=== PATIENT | female | born 1935 | race Caucasian/White ===

== ENCOUNTER 2018-01-02 17:35 | Inpatient (IN) | payer OTHER, MEDICARE ==
[~2018-01-02] VITALS: Ht 152.4 cm; Wt 96.7 kg
[~2018-01-02 17:35] MED LIST: ALPRAZOLAM0.25 M1 PO; ASPIRIN EC81 M1 PO; CARDIZEM CD120 M2 PO; DILTIAZEM 24HR180 M1 PO; DOCUSATE SODIU100 M3 PO; ELIQUIS5 M1 PO; FUROSEMIDE40 M1 PO; LASIX40 M1 PO; LISINOPRIL10 M1 PO; METOPROLOL TART25 M1 PO; MONTELUKAST SOD10 M1 PO; NITROSTAT0.4 M1 SL; QUINAPRIL HCL10 M1 PO; SIMVASTATIN10 M1 PO; VITAMIN B-12250 MCG PO
--- NOTE | 2018-01-02 18:39 | ED DYSPNEA/ASTHMA COMPLAINT ---
History of Present Illness General Chief Complaint: Dyspnea (COPD, CHF, Other) Stated Complaint: BIBA SOB Source: patient, old records Exam Limitations: poor historian Vital Signs & Intake/Output Vital Signs & Intake/Output Vital Signs Date Time Temp Pulse Resp B/P B/P Pulse O2 O2 Flow FiO2 Mean Ox Delivery Rate 01/03 1154 98.6 100 24 140/60 98 Nasal 2.0L Cannula 01/03 0615 99.3 87 18 126/59 98 Room Air 01/02 2043 98.2 100 24 164/69 95 Nasal 2.0L Cannula 01/02 1805 Room Air 2.0L 01/02 1800 98.4 103 26 143/76 94 Room Air ED Intake and Output 01/03 0000 01/02 1200 Intake Total Output Total Balance Patient 200 lb Weight Weight Reported by Patient Measurement Method Allergies Coded Allergies: NO KNOWN ALLERGIES (03/18/16) Reconcile Medications Alprazolam 0.25 MG TABLET 1 TAB PO AT BEDTIME PRN SLEEP (Reported) Apixaban (Eliquis) 5 MG TABLET 1 TAB PO BID BLOOD THINNER (Reported) Aspirin (Ecotrin*) 81 MG TABLET.DR 1 TAB PO DAILY HEART (Reported) Diltiazem HCl (Diltiazem 24HR Cd) 180 MG CAP.ER.24H 1 CAP PO DAILY HEART ( Reported) Furosemide 40 MG TABLET 1.5 TAB PO DAILY CHF Lisinopril 10 MG TABLET 10 MG PO DAILY HEART HEALTH Metoprolol Tartrate 25 MG TABLET 25 MG PO BID HEART HEALTH Simvastatin (Simvastatin*) 10 MG TABLET 1 TAB PO QPM CHOLESTEROL (Reported) Triage Note: 82 Y/O FEMALE BIBA WITH COMPLAINTS OF SOB X 2 DAYS. DENIES COUGH, CP, N/V/D. Triage Nurses Notes Reviewed? yes HPI: Patient presents for evaluation of "can't breathe good" began subacutely yesterday. Patient is having some difficulty describing the issue. She denies wheezing fever or cold symptoms but states that she "always" has orthopnea and that she "never lies down". She is also complaining of chest heaviness constantly over the past 2 days. 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 see below for history Family History Hx Contributory? No (Ronn Elder DO) Review of Systems Review of Systems Constitutional: Denies: fever. EENTM: Reports: no symptoms. Respiratory: Reports: short of breath. Cardiovascular: Reports: see HPI. GI: Reports: no symptoms. Skin: Reports: no symptoms. Neurological/Psychological: Reports: no symptoms. (Ronn Elder DO) Physical Exam Physical Exam Respiratory: SEE BELOW Comments: Gen.: Well-nourished, well-developed, mild to moderate respiratory distress Head: Normocephalic, atraumatic. Eyes: Normal inspection bilaterally Ears: Normal inspection bilaterally Nose: Normal inspection Throat/mouth : Moist mucosa Neck: Supple, full range of motion, no goiter, no JVD Heart: IRRegular rate and rhythm, no murmurs rubs or gallops Lungs: Clear to auscultation bilaterally with normal air entry Chest: Nontender Back: Normal range of motion Abdomen: Soft, nontender, nondistended, normal bowel sounds Extremities: Normal range of motion grossly, equal radial pulses, no cyanosis, bilateral 2-3+ lower extremity pitting edema Neurologic: Cranial nerves grossly intact, speech is clear Skin: warm and dry Psychiatric: Calm, cooperative, no apparent delusions or hallucinations (Ronn Yen MD) Core Measures ACS in differential dx? Yes CVA/TIA Diagnosis No Sepsis Present: No Sepsis Focused Exam Completed? No (Ronn Elder DO) Progress Differential Diagnosis: AMI, bronchitis, CHF, COPD, pneumonia, unstable angina Plan of Care: Orders Procedure Date/time Status CHF Diet 01/03 B Active Vital Signs 01/03 849 Active Teach/Educate 02/21 0849 Active Pain Treatment and Response 01/03 0849 Active Nutritional Intake, Monitor 01/03 0849 Active Isolation 01/03 0849 Active Intake & Output 01/03 0849 Active Patient Care Conference 01/03 0849 Active Activity/Ambulation 01/03 0849 Active TROPONIN LEVEL 01/03 0730 Complete EKG 01/03 0730 Active Change service to 01/03 0727 Active Change service to 01/03 0634 Active CBC WITHOUT DIFFERENTIAL 01/03 0600 Complete BASIC ELECTROLYTES PLUS BUN&CR 01/03 0600 Complete EKG 01/03 0600 Active Change service to 01/03 0259 Active LACTIC ACID 01/03 0217 Complete Change service to 01/03 0209 Active TROPONIN LEVEL 01/03 0000 Complete EKG 01/03 0000 Active PHYSICIAN CONSULT 01/03 UNK Active ECHOCARDIOGRAM 01/03 UNK Active BLOOD CULTURE 01/02 2325 Active URINALYSIS 01/02 2325 Active Code Status 01/02 2310 Active Add-on Test (ER Only) 01/02 2302 Active RAPID VIRAL INFLUENZA A 01/02 2259 Complete D-DIMER 01/02 225 Complete Pathway - chart 01/02 223 Active House Staff 01/02 223 Active Patient Data 01/02 2057 Active Misc Message 01/02 2018 Active ED Holding Orders 01/02 2018 Active Admit to inpatient 01/02 2018 Active Vital Signs 01/02 2018 Active Code Status 01/02 2018 Complete Add-on Test (ER Only) 01/02 1838 Active B-TYPE NATRIURETIC PEP (BNP) 01/02 1817 Complete TROPONIN LEVEL 01/02 1811 Complete MAGNESIUM 01/02 1811 Complete COMPREHENSIVE METABOLIC PANEL 01/02 1811 Complete CHOLESTEROL 01/02 1811 Complete CBC WITHOUT DIFFERENTIAL 01/02 1811 Complete Intake & Output 01/02 1757 Complete EKG 01/02 1744 Active TRC EVALUATION (GEN) 01/02 UNK Active OXYGEN SETUP (GEN) 01/02 UNK Active Wound Care/Dressing 01/02 UNK Active Weight 01/02 UNK Active VTE Mechanical Prophylaxis 01/02 UNK Active Vital Signs 01/02 UNK Active Intake & Output 01/02 UNK Active Current Medications Sig/Rin Start time Last Medication Dose Stop Time Status Admin Atorvastatin Calcium 10 MG 1700 01/03 1700 AC (Lipitor) Cefazolin Sodium 1,000 MG Q8H 01/03 1100 AC 01/03 (Kefzol-Ancef Inj) 1151 Aspirin Buffered 81 MG DAILY 01/03 1000 AC 01/03 (Ecotrin) 1151 Diltiazem HCl 180 MG DAILY 01/03 1000 AC 01/03 (Cardizem CD) 1151 Furosemide 60 MG DAILY 01/03 1000 AC 01/03 (Lasix) 1151 Lisinopril 10 MG DAILY 01/03 1000 AC 01/03 (Prinivil) 115 Alprazolam 0.25 MG AT BEDTIME PRN 01/025 AC (Xanax) 01/09 231 Metoprolol Tartrate 25 MG BID 01/02 231 AC 01/03 (Lopressor) 013 Apixaban 5 MG BID 01/02 230 AC 01/03 (Eliquis) 0130 Laboratory Tests 01/03/18 0615: Lactic Acid 1.5, CBC w Diff MAN DIFF ORDERED, RBC 3.99 L, MCV 78.6 L, MCH 25.5 L, MCHC 32.4 L, RDW 16.3 H, MPV 7.2 L, Gran % 90.5 H, Lymphocytes % 4.2 L, Monocytes % 5.2, Eosinophils % 0, Basophils % 0.1, Absolute Granulocytes 13.6 H , Segmented Neutrophils 77 H, Band Neutrophils 10 H, Absolute Lymphocytes 0.6 L, Lymphocytes 6 L, Monocytes 7, Absolute Monocytes 0.8 H, Absolute Eosinophils 0, Absolute Basophils 0, Platelet Estimate ADEQUATE, Polychromasia 1 +, Hypochromic-Microcytic 2+, Poikilocytosis 1+, Anisocytosis 1+, Elliptocytes FEW 01/03/18 0525: Troponin I 0.04 01/03/18 0525: Anion Gap 13, Estimated GFR > 60, BUN/Creatinine Ratio 27.1 H 01/03/18 0127: Troponin I 0.05 01/02/18 1817: Anion Gap 10, Estimated GFR > 60, BUN/Creatinine Ratio 25.7 H, Glucose 206 H, Calcium 8.7, Magnesium 1.8, Total Bilirubin 1.1, AST 39 H, ALT 32, Alkaline Phosphatase 108, Troponin I 0.03, Nbf-A-Zsvohzevlzp Pept 4240 H, Total Protein 7.6, Albumin 3.6, Globulin 4.0, Albumin/Globulin Ratio 0.9 L, Cholesterol 127, D-Dimer High Sensitivty 436 H, CBC w Diff MAN DIFF ORDERED, RBC 4.23, MCV 78.6 L, MCH 25.2 L, MCHC 32.1 L, RDW 16.7 H, MPV 7.6, Gran % 94.1 H, Lymphocytes % 2.4 L, Monocytes % 3.5, Eosinophils % 0, Basophils % 0, Absolute Granulocytes 18.8 H, Segmented Neutrophils 85 H, Band Neutrophils 11 H, Absolute Lymphocytes 0.5 L, Lymphocytes 3 L, Monocytes 1 L, Absolute Monocytes 0.7 H, Absolute Eosinophils 0, Absolute Basophils 0, Platelet Estimate ADEQUATE, Normochromic RBCs VERIFIED, Poikilocytosis 1+, Anisocytosis 1+, Stomatocytes FEW Microbiology 01/03 0145 BLOOD: Blood Culture - RECD 01/03 0130 BLOOD: Blood Culture - RECD 01/03 0000 NASOPHARYN: Influenza Virus A & B Rapid Smear - COMP Diagnostic Imaging: Discussed w/RAD: Radiology Read. CXR Impression: PATIENT: CATERINA SCHROEDER PRESENT AGE: 82 PATIENT ACCOUNT NO: [id number] : 33 LOCATION: [facility] ORDERING PHYSICIAN: Ronn Yen MD SERVICE DATE: 01/02/18 EXAM TYPE: RAD - XRY-PORTABLE CHEST XRAY EXAMINATION: XR PORTABLE CHEST CLINICAL INFORMATION: CHF. Shortness of breath for 2 days. COMPARISON: Chest radiograph 10/01/2017. TECHNIQUE: Portable frontal view of the chest was obtained. FINDINGS: There is central vascular congestion with prominence of the background interstitium which may reflect mild degree of interstitial edema. There is no focal consolidation or large volume pleural effusion. There is no pneumothorax. The heart is mildly enlarged but is stable. There is atheromatous calcification of the thoracic aorta. IMPRESSION: Central vascular congestion with mild interstitial edema. DICTATED BY: Luciana Fine MD DATE/TIME DICTATED:01/02/181905 SALES AND OPERATIONS TRAINEE:ADELAIDE DATE/TIME TRANSCRIBED:01/02/181905 CONFIDENTIAL, DO NOT COPY WITHOUT APPROPRIATE AUTHORIZATION. <Electronically signed in Other Vendor System> SIGNED BY: Luciana Fine MD 01/02/181910 Initial ED EKG: rate (116), AFIB Prior EKG: unchanged Comments: 01/02/2018 8:14:43 PM patient's case discussed with Dr. Mullen who agrees with rate control and diuresis. (Yovana STOCKTON,Ronn Mancilla) Departure Departure Disposition: STILL A PATIENT Condition: Stable Clinical Impression Primary Impression: CHF (congestive heart failure) Qualifiers: Heart failure type: unspecified Heart failure chronicity: acute Qualified Code: I50.9 - Heart failure, unspecified Referrals: Unknown (PCP/Family) Departure Forms: Customer Survey General Discharge Information Admission Note Spoke With: Paz STOCKTON PHD,León Richey Documentation of Exam: Documentation of any treatments & extenuating circumstances including Concerns Regarding Discharge (functional status, medication knowledge or non-compliance, living conditions, etc.) that warrant an admission rather than observation: Patient presents in rapid atrial fibrillation with congestive heart failure. She has been experiencing increasingly severe dyspnea and orthopnea over yesterday and today. Her dyspnea makes her a poor candidate for outpatient management as this could potentially exacerbate her dyspnea and precipitate chest pain and an acute coronary syndrome (patient was admitted last year for an acute coronary syndrome). I feel this patient requires continuous cardiac monitoring given her rapid atrial fibrillation. She will also require rate control and diuresis. Given this patient's advanced age and medical comorbidities I feel she will require a multiple day hospitalization. Her recovery could be prolonged and complicated. (Yovana STOCKTON,Ronn Mancilla) Departure Comments 01/03/18 The patient had initially been accepted by Dr. Mullen. The patient's network systems consultant is Dr. Ho. His admission was subsequently transferred to the hospitalist for admission. Dr Kilpatrick accepted the patient. (Ronn Elder DO) Critical Care Note Critical Care Note Critical Care Time: 30-74 min (Yovana STOCKTON,Ronn Mancilla)
[2018-01-02 18:49] LABS: ABSOLUTE BASOPHIL COUNT 0 /CUMM (0.0-0.2); ABSOLUTE EOSINOPHIL COUNT 0 /CUMM (0.0-0.7); ABSOLUTE GRANULOCYTE CT 18.8 /CUMM (1.4-6.5); ABSOLUTE LYMPH COUNT 0.5 /CUMM (1.2-3.4); ABSOLUTE MONOCYTE COUNT 0.7 /CUMM (0.10-0.60); BASOPHIL % 0 % (0.0-2.0); EOSINOPHIL % 0 % (0-5); GRANULOCYTE % 94.1 % (42.2-75.2); HEMATOCRIT 33.2 % (37-47); MEAN CORPUSCULAR HGB 25.2 PG (27.0-31.0); MEAN CORPUSCULAR HGB CONC 32.1 G/DL (33.0-37.0); MEAN CORPUSCULAR VOLUME 78.6 FL (81.0-99.0); MEAN PLATELET VOLUME 7.6 FL (7.4-10.4); PLATELET COUNT 262 /CUMM (130-400); RBC DISTRIBUTION WIDTH 16.7 % (11.5-14.5); RED BLOOD CELL CT 4.23 /CUMM (4.20-5.40)
--- NOTE | 2018-01-02 19:11 | RADIOLOGY REPORT ---
EXAMINATION: XR PORTABLE CHEST CLINICAL INFORMATION: CHF. Shortness of breath for 2 days. COMPARISON: Chest radiograph 10/01/2017. TECHNIQUE: Portable frontal view of the chest was obtained. FINDINGS: There is central vascular congestion with prominence of the background interstitium which may reflect mild degree of interstitial edema. There is no focal consolidation or large volume pleural effusion. There is no pneumothorax. The heart is mildly enlarged but is stable. There is atheromatous calcification of the thoracic aorta. IMPRESSION: Central vascular congestion with mild interstitial edema.
--- NOTE | 2018-01-02 22:24 | History & Physical ---
Jose Beckwith MDapna 01/02/18 2224: General Information and HPI MD Statement: I have seen and personally examined CATERINA SCHROEDER and documented this H&P. The patient is a 82 year old F who presented with a patient stated chief complaint of [dyspnea]. Source of Information: patient Exam Limitations: no limitations History of Present Illness: 82-year-old female with past medical history of atrial fibrillation, hypertension, anxiety, chronic back pain, bilateral lower extremity edema, varicose veins, GI bleed came to [place] ER with complaints of shortness of breath for the past 2 days which is not associated with chest pain, chest pressure, nausea, vomiting, abdominal pain, loss of consciousness, orthopnea, palpitation, increased sweating. Altered sensation, hematuria, melena, decreased urination, fever or chills. Patient was in usual state of health until 2 days ago, following which patient suddenly developed shortness of breath both on rest and exertion. At baseline patient sleeps in a recliner due to difficulty in breathing for many years. Patient is not on any home oxygen. Patient states that she was not complaining with her Lasix medication for the past few months and upon questioning why she said she was "crazy". Patient states that she has been drinking less for the past few days with decreased urination. Patient states that she was treated for bilateral leg edema with weeping ulcers in September 2017 at [facility]. Patient has patient has mild nasal bleeding on and off. Patient goes to a hospital [she doesn't know the name] for wound care. She used to see Dr. Ho but she failed to follow up with him since September 2017. She was scheduled for stress test by Dr. Ho recently. She denies any sick contacts or recent travel. Allergies/Medications Allergies: Coded Allergies: NO KNOWN ALLERGIES (03/18/16) Home Med list Alprazolam 0.25 MG TABLET 1 TAB PO AT BEDTIME PRN SLEEP (Reported) Apixaban (Eliquis) 5 MG TABLET 1 TAB PO BID BLOOD THINNER (Reported) Aspirin (Ecotrin*) 81 MG TABLET.DR 1 TAB PO DAILY HEART (Reported) Diltiazem HCl (Diltiazem 24HR Cd) 180 MG CAP.ER.24H 1 CAP PO DAILY HEART ( Reported) Furosemide 40 MG TABLET 1.5 TAB PO DAILY CHF Lisinopril 10 MG TABLET 10 MG PO DAILY HEART HEALTH Metoprolol Tartrate 25 MG TABLET 25 MG PO BID HEART [facility] Simvastatin (Simvastatin*) 10 MG TABLET 1 TAB PO QPM CHOLESTEROL (Reported) Compliance With Home Meds: POOR Past History Travel History Traveled to [place] past 21 day No Medical History Neurological: NONE EENT: NONE Cardiovascular: AFIB, CHF, "SOME KIND OF HEART PROB" PERIPHERAL EDEMA HYPERTENSION Respiratory: NONE Gastrointestinal: NONE Hepatic: NONE Renal: NONE Musculoskeletal: CHRONIC BACK PAIN Psychiatric: NONE Endocrine: NONE Blood Disorders: DVT, HISTORY DVT IN BLE Cancer(s): NONE PIPE INSTALLER/Reproductive: NONE History of MRSA: No History of VRE: No History of CDIFF: No Isolation History: Standard Surgical History Surgical History: none ECHO Results (as available) EF% 65 Past Family/Social History Family History Relations & Conditions if any FATHER MOTHER Relation not specified for: FH: diabetes mellitus Psychosocial History Who Do You Live With? spouse Services at Home: None Primary Language: Namibian ETOH Use: denies use Illicit Drug Use: denies illicit drug use Living Will? unknown Functional Ability ADLs Independent: dressing, eating, toileting, bathing. Ambulation: independent IADLs Independent: shopping, housework, finances, food prep, telephone, transportation , medication admin. Review of Systems Review of Systems Constitutional: Reports: no symptoms. Cardiovascular: Reports: edema. Respiratory: Reports: short of breath. GI: Reports: no symptoms. Genitourinary: Reports: no symptoms. Musculoskeletal: Reports: no symptoms. Exam & Diagnostic Data Last 24 Hrs of Vital Signs/I&O Vital Signs Date Time Temp Pulse Resp B/P B/P Pulse O2 O2 Flow FiO2 Mean Ox Delivery Rate 01/02 2043 98.2 100 24 164/69 95 Nasal 2.0L Cannula 01/02 1805 Room Air 2.0L 01/02 1800 98.4 103 26 143/76 94 Room Air Intake & Output 01/03 0800 01/03 0000 01/02 1600 Intake Total Output Total Balance Patient 200 lb Weight Weight Reported by Patient Measurement Method Physical Exam General Appearance Alert, Oriented X3, Cooperative, No Acute Distress Skin No Rashes, No Breakdown HEENT Atraumatic, PERRLA, EOMI Neck Supple, No JVD Cardiovascular Normal S1, Normal S2, No Murmurs Lungs Clear to Auscultation Abdomen Normal Bowel Sounds, Soft, No Hepatospenomegaly Neurological Strength at 5/5 X4 Ext Last 24 Hrs of Labs/Juan Manuel: Laboratory Tests 01/03/18 0127: Troponin I 0.05 01/02/18 1817: Anion Gap 10, Estimated GFR > 60, BUN/Creatinine Ratio 25.7 H, Glucose 206 H, Calcium 8.7, Magnesium 1.8, Total Bilirubin 1.1, AST 39 H, ALT 32, Alkaline Phosphatase 108, Troponin I 0.03, Sty-B-Gyumdntwebw Pept 4240 H, Total Protein 7.6, Albumin 3.6, Globulin 4.0, Albumin/Globulin Ratio 0.9 L, Cholesterol 127, D-Dimer High Sensitivty 436 H, CBC w Diff MAN DIFF ORDERED, RBC 4.23, MCV 78.6 L, MCH 25.2 L, MCHC 32.1 L, RDW 16.7 H, MPV 7.6, Gran % 94.1 H, Lymphocytes % 2.4 L, Monocytes % 3.5, Eosinophils % 0, Basophils % 0, Absolute Granulocytes 18.8 H, Segmented Neutrophils 85 H, Band Neutrophils 11 H, Absolute Lymphocytes 0.5 L, Lymphocytes 3 L, Monocytes 1 L, Absolute Monocytes 0.7 H, Absolute Eosinophils 0, Absolute Basophils 0, Platelet Estimate ADEQUATE, Normochromic RBCs VERIFIED, Poikilocytosis 1+, Anisocytosis 1+, Stomatocytes FEW Microbiology 01/03 0145 BLOOD: Blood Culture - RECD 01/03 0130 BLOOD: Blood Culture - RECD 01/03 0000 NASOPHARYN: Influenza Virus A & B Rapid Smear - COMP Diagnostic Data EKG Results EKG-atrial fibrillation, heart rate 1158, QTc 456 Assessment/Plan Assessment: 82-year-old female with past medical history of atrial fibrillation, hypertension, anxiety, chronic back pain, bilateral lower extremity edema, varicose veins, GI bleed came to [place] ER with complaints of shortness of breath. Patient admitted to telemetry in view of acute on chronic congestive heart failure management. Admission vitals Pulse rate 103, blood pressure 143/76, temperature 98.4, 94% on 2 L. Admission labs W BC 20 with no bands, hemoglobin 10.7, influenza negative, sodium 133, potassium 4.2 BUN 18, troponin 0.05 creatinine 0.7. Imaging Chest x-ray IMPRESSION: Central vascular congestion with mild interstitial edema. ED treatment IV Lasix 40 Assessment and plan 1. Acute on chronic congestive heart failure 2. Bilateral chronic pedal edema with blisters-possible cellulitis [ leukocytosis]\\ 3. Chronic medical condition-atrial fibrillation, hypertension * We will admit in telemetry. Patient presents at with shortness of breath which is most likely secondary due to acute on chronic congestive heart failure. We will treat her with 60 Lasix IV [patient feels better after IV Lasix]. We will do serial troponin and EKG to rule out any acute coronary syndrome. Daily weight and strict I's and O's. Patient education on complaints with her medication [patient didn't take her Lasix for past 2 months]. * Bilateral chronic pedal edema with blister-patient has a high white count in 20s with no temperature. Bilateral legs look erythematous, warm with 0.5 cm blister in her left rodriguez. We will start her on cefazolin in view of possible cellulitis. Wound care. Elevation of leg. * We will continue all her home medication lisinopril, atorvastatin, diltiazem, aspirin, metoprolol, Eliquis. * Code-full code * Diet-heart healthy diet * DVT prophylaxis-patient is on Eliquis. As Ranked By This Provider Problem List: 1. CHF (congestive heart failure) Qualifiers Heart failure type: unspecified Heart failure chronicity: acute Qualified Code: I50.9 - Heart failure, unspecified 2. 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 Core Measures/Misc (07/30) Acute Coronary Syndrome ACS Diagnosis: No Congestive Heart Failure Congestive Heart Failure Diagnosis Yes Last Known EF % 65 Cerebrovascular Accident CVA/TIA Diagnosis: No VTE (View Protocol) VTE Risk Factors Age>40 No Mechanical VTE Prophylaxis d/t Other No VTE Pharm Prophylaxis d/t Other Sepsis (View protocol) Sepsis Present: No Summer Sykes 01/02/18 8518: Resident Review Statement Resident Statement: examined this patient, discussed with graphic design intern, agreed with graphic design intern, discussed with family, reviewed EMR data (avail), discussed with nursing , discussed with case mgmt, reviewed images, amended to note Other Findings: 82-year-old female with a past medical history of atrial fibrillation, chronic lower leg edema and varicose veins, hypertension, hyperlipidemia, A. fib, CHF, DVT, chronic back pain who presented to the ER with complaints of trouble breathing for 1 day. She was last admitted in September 2017 at which time she was treated for worsening congestive heart failure, and was d/c on Lasix 60mg daily. According to the patient she was in her usual state of health up until about 2 days ago which she started to have worsening shortness of breath. She states that that her symptoms progressively worsened to a point where today she had to ask her to bring her to the ER. Patient also endorses chest pressure that she describes as being substernal with no radiation. She also endorses intermittent episodes of palpitations. Of note she sleeps in a recliner at baseline. She denies any recent history of cough, fever, chills. She denies any nausea, vomiting, diarrhea, dysuria, abdominal pain. Patient does not use oxygen at baseline at home. Apparently she has not been taking her Lasix as scheduled and has not followed up with Dr. Ho since her discharge back in September 2017. She does however endorse being compliant with her diet. Of note she's been off of Lasix for the past 2 months. She however does endorse taking her other medications religiously and when asked about compliance with Eliquis she states that she's been taking at without any interruptions during the entire time. Note patient was scheduled to have a stress test with Dr. Ho as an outpatient however her appointment was canceled 3 times and she never ended up getting it. Chronic lower extremity edema with ulcers that according to her has improved. She does endorse LE swelling but states that it has been about the same. Also endorses an increase in her abdominal girth. Vitals at the time of admission blood pressure 164/69, pulse of 100, afebrile respiratory rate of 24 saturating 95% on 2 L of oxygen via nasal cannula. On physical exam she is alert, oriented 3 and in no acute distress sitting comfortably in bed. HEENT revealed PERRLA, dry mucous membranes. Patient does seem a little winded while talking to us. Examination of the rectum reveals an elevated JVD of about 8 cm. Cardiac last exam pertinent for normal S1, S2, no murmurs rubs or gallops appreciated. Auscultation of the chest was clear bilaterally. Abdominal exam was benign with abdomen soft, nontender, nondistended normal bowel sounds in all 4 quadrants. Examination of the lower extremities revealed bilateral chronic venous stasis changes with 2-3+ edema, left lower extremity had some erythema and blister like lesion anteriorly on her rodriguez. It was a little warm compared to the right lower extremity however the girth of the calf is same. Labs pertinent for leukocytosis with a white blood cell count of 20,000, microcytic anemia with an H&H of 10.7/33.2 and an MCV of 78.6 with a platelet count of 262,000. Chemistries pertinent for hyponatremia with sodium of 133, potassium of 5.2, bicarbonate 26, anion gap of 10, BUN 18 creatinine of 0.7 and glucose of 206. Serum calcium 8.7, mag 1.8, total bili 1.1, AST/ALT of 39/32, first set troponin 0.03 and a proBNP of 4240. Chest x-ray consistent with central venous congestion with mild interstitial edema no focal consolidation or large volume pleural effusion. EKG revealed A. fib with a heart rate of 116, normal axis, poor R-wave progression, no ST-T changes. Last echocardiogram done [address] Ho shows aortic sclerosis with no valvular stenosis or insufficiency, small pericardial effusion which is hemodynamically insignificant and mild tricuspid and pulmonic insufficiency with pulmonary hypertension and RV systolic pressure of 50 In the ER patient received a dose of IV 40 mg Lasix. Assessment and plan Admit patient to telemetry or acute on chronic diastolic heart failure. #Acute hypoxic respiratory failure requiring supplemental oxygen secondary to acute on chronic diastolic heart failure in the setting of being noncompliant with medications. Diuresed with IV Lasix 60 mg daily Strict I's and O's Daily weights Rule out ACS with troponins and EKG at midnight and 6 AM Cardiology consult with Dr. Ho in a.m. Follow-up d-dimer. If elevated will consider CT to rule out PE. Of note patient does state that she has been very compliant with her Eliquis and has not missed a dose. #History of A. fib Continue Lopressor 25 mg twice a day by mouth, Eliquis 5 mg twice a day by mouth Continue Cardizem 180 mg by mouth daily #HTN Continue aspirin 81 mg daily, lisinopril 10 mg daily #Leukocytosis Most likely secondary to cellulitis of the right lower extremity from chronic venous stasis changes Will cover with cefazolin thousand milligrams IV every 8 hours. Doubt that it is MRSA as the discharge is not purulent. Follow-up CBC in a.m. to monitor leukocytosis. Getting Dopplers of the lower extremity. #Anxiety Continue on Xanax 0.25 mg at bedtime. DVT prophylaxis On Eliquis Diet CHF CODE STATUS Full code Finesse STOCKTON, [facility] 01/03/18 0212: Attending MD Review Statement Attending Statement Attending MD Statement: examined this patient, discuss w/resident/PA/PRO SHOP ATTENDANT, agreed w/resident/PA/PRO SHOP ATTENDANT, reviewed images, amended to note Attending Assessment/Plan: 82 yo F with h/o DVT, paroxysmal Afib/ flutter s/p cardioversion on eliquis, chronic diastolic heart failure, HTN, b/l chronic LE edema and venous stasis is here for evaluation of SOB for past 2 days. She was last admitted to [place] ( Sep 2017) for CHF and discharged on lasix 60 mg daily, however patient reports noncompliance with lasix as it makes her urinate often. She does report compliance with eliquis and other meds (not sure how reliable). C/o chest pressures and intermittent palpitations. Vitals: afebrile, tachycardic, BP 126/59, sats 95% on 2L. Exam: AAO, positive JVD, Diffuse crackles on chest exam, LE: b/l pitting edema with chronic stasis, LLE is warm, tender with erythema extending up to the thigh, compared to the right. Labs: WBC 20, microcytic anemia, bands 11, BUN 19, trop neg, proBNP 4240. CXR: central vascular congestion with mild interstitial edema. EKG: Afib with HR 116. Echo (2017): EF 60-65%, pulmonary hypertension. Assessment and plan: 1. Acute on chronic diastolic heart failure 2. Acute hypoxic respiratory failure 3. Sepsis, Left lower extremity cellulitis 4. Chronic venous stasis, chronic leg edema 5. Noncompliance with diuretic regimen 6. Rule out DVT - Admit to Telemetry - Daily weights, strict I/O - IV lasix 60 daily - Rule out ACS, Cardio consult (Dr. Ho) - Panculture, IV cefazolin (low suspicion for MRSA) - Check lactic acid - Wound consult - Elevate legs - LE dopplers to rule out DVT - Consider CTA if her symptoms are persistent. DVT ppx Eliquis. Full code.
--- NOTE | 2018-01-03 02:14 | Admission Certification ---
Admission Certification Certification Statement - As attending physician, I certify that at the time of - admission, based on clinical presentation, severity of - symptoms, need for further diagnostic testing and - therapeutic interventions, and risk of adverse outcomes - without in-hospital treatment, in my clinical assessment, - this patient requires an acute hospital stay for a minimum - of two nights or longer. I have also considered psychsocial - factors such as support system, advanced age, financial - issues, cognitive issues, and failed out-patient treatments, - past re-admission history, safety of patient, and lack of - compliance as applicable. Specific rationale supporting this admission is: Acute on chronic diastolic heart failure, Sepsis with left leg cellulitis.
[2018-01-03 06:26] LABS: ABSOLUTE BASOPHIL COUNT 0 /CUMM (0.0-0.2); ABSOLUTE EOSINOPHIL COUNT 0 /CUMM (0.0-0.7); ABSOLUTE GRANULOCYTE CT 13.6 /CUMM (1.4-6.5); ABSOLUTE LYMPH COUNT 0.6 /CUMM (1.2-3.4); ABSOLUTE MONOCYTE COUNT 0.8 /CUMM (0.10-0.60); BASOPHIL % 0.1 % (0.0-2.0); EOSINOPHIL % 0 % (0-5); GRANULOCYTE % 90.5 % (42.2-75.2); HEMATOCRIT 31.4 % (37-47); MEAN CORPUSCULAR HGB 25.5 PG (27.0-31.0); MEAN CORPUSCULAR HGB CONC 32.4 G/DL (33.0-37.0); MEAN CORPUSCULAR VOLUME 78.6 FL (81.0-99.0); MEAN PLATELET VOLUME 7.2 FL (7.4-10.4); PLATELET COUNT 255 /CUMM (130-400); RBC DISTRIBUTION WIDTH 16.3 % (11.5-14.5); RED BLOOD CELL CT 3.99 /CUMM (4.20-5.40); WHITE BLOOD CELL COUNT 15.1 /CUMM (4.8-10.8)
--- NOTE | 2018-01-03 07:26 | PN- Housestaff ---
Kieran STOCKTON,John 01/03/18 0726: Subjective Follow-up For: Acute on chronic CHF Left lower extremity cellulitis Sepsis Subjective: Patient seen and examined. She is seen sitting upright in bed resting comfortably maintained on supplemental oxygen via nasal cannula. She appears to be in no acute distress. She reports that her breathing is back to baseline and denies any other complaints. She does however admit her legs appear more swollen than usual. She denies any chest pain, fever, or chills. Review of Systems Constitutional: Reports: see HPI. Objective Last 24 Hrs of Vital Signs/I&O Vital Signs Date Time Temp Pulse Resp B/P B/P Pulse O2 O2 Flow FiO2 Mean Ox Delivery Rate 01/03 0615 99.3 87 18 126/59 98 Room Air 01/02 2043 98.2 100 24 164/69 95 Nasal 2.0L Cannula 01/02 1805 Room Air 2.0L 01/02 1800 98.4 103 26 143/76 94 Room Air Intake & Output 01/03 1600 01/03 0800 01/03 0000 Intake Total Output Total Balance Patient 90.718 kg Weight Weight Reported by Patient Measurement Method Physical Exam General Appearance: Alert, Cooperative, No Acute Distress Other Physical Findings: GEN: morbidly obese elderly [facility] woman in no acute distress HEENT: NCAT, PERRL, EOMI, anicteric sclera, MMM NECK: Supple, JVD difficult to assess, trachea midline, no accessory respiratory muscle use CARD: irregularly irregular PULM: right lower lobe crackles ABD: Soft, obese, NT, ND, BS+ NEURO: Awake and alert, CN II-XII grossly intact EXT: 4+ bilaterall lower extremity pitting edema, bilateral distal legs wrapped in sterile gauze without obvious drainage, pulses intact Current Medications: Current Medications Sig/Rin Start time Last Medication Dose Route Stop Time Status Admin Alprazolam 0.25 MG AT BEDTIME PRN 01/02 2315 AC PO 01/09 231 Apixaban 5 MG BID 01/02 230 AC 01/03 PO 0130 Aspirin Buffered 81 MG DAILY 01/03 1000 AC PO Atorvastatin Calcium 10 MG 1700 01/03 1700 AC PO Cefazolin Sodium 1,000 MG Q8H 01/03 1100 AC IV Cefazolin Sodium 0 .STK-MED ONE 01/03 0312 DC .ROUTE Cefazolin Sodium 1,000 MG IQ8 01/03 0000 DC 01/03 IV 0313 Diltiazem HCl 180 MG DAILY 01/03 1000 AC PO Furosemide 60 MG DAILY 01/03 1000 AC IV Furosemide 0 .STK-MED ONE 01/02 1945 DC IV Furosemide 40 MG ONCE ONE 01/02 1930 DC 01/02 IV PUSH 01/02 Lisinopril 10 MG DAILY 01/03 1000 AC PO Metoprolol Tartrate 25 MG BID 01/02 2310 AC 01/03 PO 0130 Last 24 Hrs of Lab/Juan Manuel Results Last 24 Hrs of Labs/Mics: Laboratory Tests 01/03/18 0615: Lactic Acid 1.5, CBC w Diff MAN DIFF ORDERED, RBC 3.99 L, MCV 78.6 L, MCH 25.5 L, MCHC 32.4 L, RDW 16.3 H, MPV 7.2 L, Gran % 90.5 H, Lymphocytes % 4.2 L, Monocytes % 5.2, Eosinophils % 0, Basophils % 0.1, Absolute Granulocytes 13.6 H , Segmented Neutrophils 77 H, Band Neutrophils 10 H, Absolute Lymphocytes 0.6 L, Lymphocytes 6 L, Monocytes 7, Absolute Monocytes 0.8 H, Absolute Eosinophils 0, Absolute Basophils 0, Platelet Estimate ADEQUATE, Polychromasia 1 +, Hypochromic-Microcytic 2+, Poikilocytosis 1+, Anisocytosis 1+, Elliptocytes FEW 01/03/18 0525: Troponin I 0.04 01/03/18 0525: Anion Gap 13, Estimated GFR > 60, BUN/Creatinine Ratio 27.1 H 01/03/18 0127: Troponin I 0.05 01/02/18 1817: Anion Gap 10, Estimated GFR > 60, BUN/Creatinine Ratio 25.7 H, Glucose 206 H, Calcium 8.7, Magnesium 1.8, Total Bilirubin 1.1, AST 39 H, ALT 32, Alkaline Phosphatase 108, Troponin I 0.03, Dnp-G-Lcfesiuwrwo Pept 4240 H, Total Protein 7.6, Albumin 3.6, Globulin 4.0, Albumin/Globulin Ratio 0.9 L, Cholesterol 127, D-Dimer High Sensitivty 436 H, CBC w Diff MAN DIFF ORDERED, RBC 4.23, MCV 78.6 L, MCH 25.2 L, MCHC 32.1 L, RDW 16.7 H, MPV 7.6, Gran % 94.1 H, Lymphocytes % 2.4 L, Monocytes % 3.5, Eosinophils % 0, Basophils % 0, Absolute Granulocytes 18.8 H, Segmented Neutrophils 85 H, Band Neutrophils 11 H, Absolute Lymphocytes 0.5 L, Lymphocytes 3 L, Monocytes 1 L, Absolute Monocytes 0.7 H, Absolute Eosinophils 0, Absolute Basophils 0, Platelet Estimate ADEQUATE, Normochromic RBCs VERIFIED, Poikilocytosis 1+, Anisocytosis 1+, Stomatocytes FEW Microbiology 01/03 0145 BLOOD: Blood Culture - RECD 01/03 0130 BLOOD: Blood Culture - RECD 01/03 0000 NASOPHARYN: Influenza Virus A & B Rapid Smear - COMP Assessment/Plan Assessment: 82 year old woman with multiple medical problems significant for congestive heart failure and chronic lower extremity swelling seen for evaluation of shortness of breath and rest over past two days. Patient reports not taking her diuretic for several months and denies having a partition setter. She was found to have evidence of sepsis with lower extremity infection. She was admitted to the telemetry for managment of left lower extremity cellulitis with sepsis and acute on chronic congestive heart failure. Patient reports that he breathing has returned to baseline. JVD is diffucult to assess due to her body habitus and her lower extremities suffer from chronic swelling with an active infection in her left leg. She is continued on Cefazolin for concern of left lower extremity cellulits with sepsis/bandemia. She feels that do appear more swollen that usual. She has crackles in her right lung but is otherwise in no acute respiratory distress. Serial Troponin / EKG are unremarkable. Per cardiology recommendations she is continued on intravenous lasix. Bilateral doppler negative for DVT. Problem List -Acute on Chronic CHF -Left lower extremity wound, on Cefazolin -Sepsis -Atrial Fibrillation, on Eliquis -Anxiety -Hypertension -Chronic low back pain -Chronic bilateral lower extremity swelling -History of GI bleed Plan -Telemetry -Strict I&Os, daily weights -Elevate legs -Wound care to left leg -Cefazolin 1g IV Q8H -Lasix 60 mg IV Daily -Continue home meds: Lisinopril, Metoprolol, Cardizem, Aspirin, Eliquis, Alprazolam -Cardiology consult for Acute CHF -Follow up blood cultures & sensitivites -Follow up HbA1c -Pain control with -CHF Diet -DVT PPx with Eliquis -FULL CODE Problem List: 1. CHF (congestive heart failure) Pain Ratin Pain Location: None Pain Goal: Remain pain free Pain Plan: See assessment Tomorrow's Labs & Rationales: CBC, BMP Monica STOCKTON,[place] 01/03/18 1329: Attending MD Review Statement Attending Statement Attending MD Statement: examined this patient, discuss w/resident/PA/COLD STORAGE WORKER, agreed w/resident/PA/COLD STORAGE WORKER, reviewed EMR data (avail), discussed with nursing, discussed with case mgmt, reviewed images Attending Assessment/Plan: 82-year-old female fairly complex with atrial fibrillation on Eliquis, previous DVT, chronic diastolic heart failure who hasn't been able to come to Dr. Ho 's office for a long time is here with acute cellulitis with leukocytosis and bandemia and acute on chronic diastolic heart failure in that setting. We have her on telemetry monitoring, we are actively diuresing her with Lasix 60 mg a day and Ancef to cover for staph and strep coverage for the cellulitis. She is anticoagulated on Eliquis and will continue that. Will watch the white count and renal function closely. and renal function closely.
--- NOTE | 2018-01-03 09:29 | Cons- Cardiology ---
Gabriela STOCKTON,[facility] 01/03/18 0929: General Information and HPI Consulting Request Date of Consult: 01/03/18 Requested By: Monica STOCKTON,Eden Recinos Reason for Consult: Congestive heart failure exacerbation Source of Information: patient, old records Exam Limitations: no limitations History of Present Illness: Ms. Chu is 82 year old female with past medical history significant for morbid opacity, anxiety, recurrent DVT, paroxysmal Afib on eliquis (failed cardioversion 2016), HFPEF, severe pulmonary hypertension 50 mmgh, HTN, bilateral lower extremity chronic edema and chronic skin changes due to venous stasis who presented to ED with chief complain of shortness of breath for 2 days. Patient reported being in regular state of health until 2 days ago when she started to have progressive shortness of breath, she has orthopnea at baseline uses 2 pillows however use more pillows in the last 2 days. Denied paroxysmal nocturnal dyspnea. Denied chest pain, dizziness, blurry vision. Patient denied any history of lung disease, doesn't use oxygen at home. Patient never had sleep study before however it was recommended during last hospitalization September 2017 and with her follow-up with Dr. Ho. Patient didn't follow-up with Dr. Ho as an out patient for the last 2 years , according to the office records she has been canceling her appointments. Reported seeing PCP who apparently was refilling Medication, started to see new PCP a month ago. Patient is noncompliant with Lasix however reported taking other medication including eliquis on daily basis. She didn't notice any changes of lower extremity edema. Denied any dysuria, hematuria, fever or chills. On admission patient was tachycardic to 116, blood pressure 126/59, saturating 95% on 2 L. Allergies/Medications Allergies: Coded Allergies: NO KNOWN ALLERGIES (03/18/16) Home Med List: Alprazolam 0.25 MG TABLET 1 TAB PO AT BEDTIME PRN SLEEP (Reported) Apixaban (Eliquis) 5 MG TABLET 1 TAB PO BID BLOOD THINNER (Reported) Aspirin (Ecotrin*) 81 MG TABLET.DR 1 TAB PO DAILY HEART (Reported) Diltiazem HCl (Diltiazem 24HR Cd) 180 MG CAP.ER.24H 1 CAP PO DAILY HEART ( Reported) Furosemide 40 MG TABLET 1.5 TAB PO DAILY CHF Lisinopril 10 MG TABLET 10 MG PO DAILY HEART HEALTH Metoprolol Tartrate 25 MG TABLET 25 MG PO BID HEART HEALTH Simvastatin (Simvastatin*) 10 MG TABLET 1 TAB PO QPM CHOLESTEROL (Reported) Past History Travel History Traveled to [place] past 21 day No Medical History Neurological: NONE EENT: NONE Cardiovascular: AFIB, CHF, "SOME KIND OF HEART PROB" PERIPHERAL EDEMA HYPERTENSION Respiratory: NONE Gastrointestinal: NONE Hepatic: NONE Renal: NONE Musculoskeletal: CHRONIC BACK PAIN Psychiatric: NONE Endocrine: NONE Blood Disorders: DVT, HISTORY DVT IN BLE Cancer(s): NONE 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 spouse Services at Home: None Primary Language: [place] Islander ETOH Use: denies use Illicit Drug Use: denies illicit drug use Living Will? unknown Functional Ability ADLs Independent: dressing, eating, toileting, bathing. Ambulation: independent IADLs Independent: shopping, housework, finances, food prep, telephone, transportation , medication admin. ECHO Results (as available) EF% 65 Report: CONCLUSIONS 1. This was a technically difficult examination. 2. Minimal to mild aortic sclerosis is present with no valvular stenosis or insufficiency. 3. Mitral leaflet thickening is present with mild mitral insufficiency. 4. A small posterior pericardial effusion is present. 5. The left ventricular chamber size and systolic function are normal with no resting wall motion abnormalities. 6. Mild tricuspid insufficiency is present with mild to moderate pulmonic insufficieny and no evidence of pulmonary hypertension. 7. Atheromatous plaque is noted in the visualized portion of the abdominal aorta. Exam & Diagnostic Data Vital Signs and I&O Vital Signs Date Time Temp Pulse Resp B/P B/P Pulse O2 O2 Flow FiO2 Mean Ox Delivery Rate 01/03 0615 99.3 87 18 126/59 98 Room Air 01/02 2043 98.2 100 24 164/69 95 Nasal 2.0L Cannula 01/02 1805 Room Air 2.0L 01/02 1800 98.4 103 26 143/76 94 Room Air Intake & Output 01/03 1600 01/03 0800 01/03 0000 01/02 1600 01/02 0800 01/02 0000 Intake Total Output Total Balance Patient 90.718 kg Weight Weight Reported by Patient Measurement Method Physical Exam: Patient is lying comfortably, head of bed elevated, no acute distress HEENT Supple, JVD CSV S1, S2 no murmur Chest crackles in R lung base Abdomen Soft, BS+ LE chronic skin changes, bilateral pedal edema +1 upper to bilateral thighs Diagnostic Data EKG Results A. Fib Rate [address] or T wave changes CXR Results Central vascular congestion with mild interstitial edema. Other Results EXAM TYPE: US - US-EXT BILAT VENOUS DOPPLER EXAMINATION: US TRIPLEX OF LOWER EXTREMITIES, BILATERAL CLINICAL INFORMATION: Leg swelling, bilateral COMPARISON: None TECHNIQUE: Color-flow triplex imaging with spectral analysis and compression Doppler were performed on the lower extremities. FINDINGS: Respiratory variation, normal compression and augmented flow are noted throughout the lower extremities. The visualized common femoral vein, superficial femoral vein, profunda femoral vein, popliteal vein and midcalf peroneal and posterior tibial venous segments show no evidence of deep venous thrombosis. There is no Sadler's cyst. IMPRESSION: Normal triplex scan without evidence of deep venous thrombosis involving the lower extremities. Assessment/Plan Assessment/Plan Ms. Chu is 82 year old female with past medical history significant for morbid opacity, anxiety, recurrent DVT, paroxysmal Afib on eliquis (failed cardioversion 2016), HFPEF, severe pulmonary hypertension 50 mmgh, HTN, bilateral lower extremity chronic edema and chronic skin changes due to venous stasis who presented to ED with chief complain of shortness of breath for 2 days. On admission, patient had acute hypoxic respiratory failure with Sat 94% on [address] LN. ProBNP 4240 H. Patient echocardiogram that was obtained September 2017 revealed ejection fraction of 60/65%, pulmonary hypertension 50 mmgh. She might have a mild diastolic hypertension however there is no clear explanation of pulmonary hypertension except possible obstructive sleep apnea. 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 Problem list 1-CHF exacerbation in setting of HFPEF 2-Severe pulmonary hypertension 3-bilateral lower extremity venous insufficiency 4-acute hypoxic respiratory failure 5-left lower extremity cellulitis Recommendation -Continue telemetry monitoring -Continue Lasix 60 mg IV daily -Continue daily weights and intake output measurement -Target fluid balance is -500 mL up to 1000cc -Continue close monitoring of kidney function -Consider pulmonary consultation -Arrange for sleep test or nocturnal pulse ox during hospitalization -No need to repeat echocardiogram since last one was September 2017 -Troponin and EKG 3 negative -Continue Eliquis for atrial fibrillation -Consider obtaining hemoglobin A1c Consult Acknowledgment - Thank you for your consult request. Georgia STOCKTON,Silvestre Castillo 01/03/180: Assessment/Plan Assessment/Plan attending addendum: The patient was seen and examined by me, all pertinent data was reviewed, and the case was discussed with the primary care attending and house staff. I agree with the plan as outlined above. Consult Acknowledgment - Thank you for your consult request.
--- NOTE | 2018-01-03 10:02 | ULTRASOUND REPORT ---
EXAMINATION: US TRIPLEX OF LOWER EXTREMITIES, BILATERAL CLINICAL INFORMATION: Leg swelling, bilateral COMPARISON: None TECHNIQUE: Color-flow triplex imaging with spectral analysis and compression Doppler were performed on the lower extremities. FINDINGS: Respiratory variation, normal compression and augmented flow are noted throughout the lower extremities. The visualized common femoral vein, superficial femoral vein, profunda femoral vein, popliteal vein and midcalf peroneal and posterior tibial venous segments show no evidence of deep venous thrombosis. There is no Sadler's cyst. IMPRESSION: Normal triplex scan without evidence of deep venous thrombosis involving the lower extremities.
[2018-01-03 11:54] VITALS: BP 140/60
[2018-01-03 15:45] VITALS: BP 122/60
[2018-01-03 22:31] VITALS: BP 118/64
[2018-01-04 06:41] VITALS: BP 100/58
--- NOTE | 2018-01-04 07:34 | PN- Housestaff ---
Kieran STOCKTON,John 01/04/18 0733: Subjective Follow-up For: Acute on chronic CHF Left lower extremity cellulitis Sepsis Tele-Events Since Last Visit: Atrial Flutter HR 63-78 Subjective: Patient seen and examined. She is seen sitting upright in her chair at bedside enjoying her breakfast maintained on supplemental oxygen via nasal cannula. She appears to be in no acute distress. She reports feeling "great!" and admits that her breathing feels much improved. She denies any fever, chills, chest pain, or lower extremity pain. Review of Systems Constitutional: Reports: see HPI. Objective Last 24 Hrs of Vital Signs/I&O Vital Signs Date Time Temp Pulse Resp B/P B/P Pulse O2 O2 Flow FiO2 Mean Ox Delivery Rate 01/04 1039 99 Nasal 2.0L Cannula 01/04 0641 97.6 74 20 100/58 99 Nasal 2.0L Cannula 01/04 0000 Nasal 2.0L Cannula 01/03 2231 98.4 93 16 118/64 97 Nasal 2.0L Cannula 01/03 2226 95 120/64 01/03 1600 Nasal 2.0L Cannula 01/03 1545 98.6 85 16 122/60 98 Nasal 2.0L Cannula Intake & Output 01/04 1600 01/04 0800 01/04 0000 Intake Total 320 118 Output Total 400 550 Balance -80 -432 Intake, IV 20 Intake, Oral 300 118 Output, Urine 400 550 Patient 95.765 kg Weight Weight Chair scale Measurement Method Physical Exam General Appearance: Alert, Oriented X3, Cooperative, No Acute Distress Other Physical Findings: GEN: morbidly obese elderly latvian woman in no acute distress HEENT: NCAT, PERRL, EOMI, anicteric sclera, MMM NECK: Supple, JVD difficult to assess, trachea midline, no accessory respiratory muscle use CARD: irregularly irregular PULM: CTA bilaterally ABD: Soft, obese, NT, ND, BS+ NEURO: Awake and alert, CN II-XII grossly intact EXT: 4+ bilateral lower extremity pitting edema, bilateral distal legs wrapped in sterile gauze without obvious drainage, pulses intact Current Medications: Current Medications Sig/Rin Start time Last Medication Dose Route Stop Time Status Admin Albuterol Sulfate 3 ML Q4P PRN 01/03 1400 AC 01/03 INH 1300 Alprazolam 0.25 MG AT BEDTIME PRN 01/02 2315 AC PO 01/09 2314 Apixaban 5 MG BID 01/02 2309 AC 01/04 PO 0847 Aspirin Buffered 81 MG DAILY 01/03 1000 AC 01/04 PO 0847 Atorvastatin Calcium 10 MG 1700 01/03 1700 AC 01/03 PO 1731 Cefazolin Sodium 1,000 MG Q8H 01/03 1100 AC 01/04 IV 1104 Diltiazem HCl 180 MG DAILY 01/03 1000 AC 01/04 PO 0847 Furosemide 60 MG Q12 01/04 2200 UNVr IV Furosemide 60 MG DAILY 01/03 1000 DC 01/04 IV 0849 Ipratropium M[place]y 2.5 ML ONCE ONE 01/03 1400 DC 01/03 INH 01/03 1401 1300 Lisinopril 10 MG DAILY 01/03 1000 AC 01/04 PO 0848 Metoprolol Tartrate 25 MG BID 01/02 2310 AC 01/04 PO 0848 Patient Medication 1 ED ONE ONE 01/04 1200 DC 01/04 Teaching ED 01/04 1201 1257 Last 24 Hrs of Lab/Juan Manuel Results Last 24 Hrs of Labs/Mics: Laboratory Tests 01/04/18 0645: Anion Gap 10, Estimated GFR > 60, BUN/Creatinine Ratio 22.9, CBC w Diff NO MAN DIFF REQ, RBC 4.03 L, MCV 79.1 L, MCH 25.6 L, MCHC 32.4 L, RDW 16.3 H, MPV 8.0, Gran % 76.6 H, Lymphocytes % 12.6 L, Monocytes % 9.4 H, Eosinophils % 1.1, Basophils % 0.3, Absolute Granulocytes 6.4, Absolute Lymphocytes 1.0 L, Absolute Monocytes 0.8 H, Absolute Eosinophils 0.1, Absolute Basophils 0 Assessment/Plan Assessment: 82 year old woman with multiple medical problems significant for congestive heart failure and chronic lower extremity swelling seen for evaluation of shortness of breath and rest over past two days. 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 She was found to have evidence of sepsis with lower extremity infection. She was admitted to the telemetry for managment of left lower extremity cellulitis with sepsis and acute on chronic congestive heart failure. Patient appears to have improvement of her shortness of breath and is negative - 1L fluid balance since yesterday. Her diuretic is increased to 60 mg twice daily. Her leukocytosis is improved with mild improvement of her left lower extremity erythema while on intravenous Cefazolin. HbA1c was found to be 7.2 with no reported history of diabetes. Problem List -Acute on Chronic CHF -Left lower extremity wound, on Cefazolin -Sepsis, improved -Newly diagnosed diabetes mellitus, probably type II -Atrial Fibrillation, on Eliquis -Anxiety -Hypertension -Chronic low back pain -Chronic bilateral lower extremity swelling -History of GI bleed Plan -Telemetry -Strict I&Os, daily weights -Elevate legs -Wound care to left leg -Cefazolin 1g IV Q8H -Lasix increased to 60 mg twice daily -Continue home meds: Lisinopril, Metoprolol, Cardizem, Aspirin, Eliquis, Alprazolam -Cardiology consult for Acute CHF -Follow up blood cultures & sensitivites -Pain control with acetaminophen -CHF Diet -DVT PPx with Eliquis -FULL CODE Problem List: 1. CHF (congestive heart failure) Pain Ratin Pain Location: None Pain Goal: Remain pain free Pain Plan: See assessment Tomorrow's Labs & Rationales: ALLIE Linares MD,[facility] 01/04/18 1559: Attending MD Review Statement Attending Statement Attending MD Statement: examined this patient, discuss w/resident/PA/SPECIAL EDUCATION ADMINISTRATOR, agreed w/resident/PA/SPECIAL EDUCATION ADMINISTRATOR Attending Assessment/Plan: Patient seen and examined. Plan of care discussed with the medical team and the patient. Available lab work and radiology test reports were reviewed. Patient appears much better and she reports that she is a having less difficulty breathing on ambulation to bathroom. She denies any chest pain fever chills nausea vomiting or abdominal pain. She is currently afebrile with stable vital signs. Her saturation on 2 L oxygen his 100%. Chest exam shows scattered crepitations. WBC count is 8.3. Creatinine 0.7. Assessment plan * Acute diastolic CHF exacerbation * Left lower extremity wound and cellulitis * Diabetes * History of atrial fibrillation on eliquis Plan Given that she has significant edema I will suggest to increase Lasix to 60 twice a day IV Monitor input output and daily weights Continue low-salt diet Follow wound care recommendations Patient suggested to have sleep study which can be done as outpatient.
[2018-01-04 08:07] LABS: ABSOLUTE BASOPHIL COUNT 0 /CUMM (0.0-0.2); ABSOLUTE EOSINOPHIL COUNT 0.1 /CUMM (0.0-0.7); ABSOLUTE GRANULOCYTE CT 6.4 /CUMM (1.4-6.5); ABSOLUTE MONOCYTE COUNT 0.8 /CUMM (0.10-0.60); BASOPHIL % 0.3 % (0.0-2.0); EOSINOPHIL % 1.1 % (0-5); GRANULOCYTE % 76.6 % (42.2-75.2); HEMATOCRIT 31.9 % (37-47); MEAN CORPUSCULAR HGB 25.6 PG (27.0-31.0); MEAN CORPUSCULAR HGB CONC 32.4 G/DL (33.0-37.0); MEAN CORPUSCULAR VOLUME 79.1 FL (81.0-99.0); PLATELET COUNT 238 /CUMM (130-400); RBC DISTRIBUTION WIDTH 16.3 % (11.5-14.5); RED BLOOD CELL CT 4.03 /CUMM (4.20-5.40); WHITE BLOOD CELL COUNT 8.3 /CUMM (4.8-10.8)
--- NOTE | 2018-01-04 08:24 | Cons- Wound Care ---
General Information and HPI Consulting Request Date of Consult: 01/04/18 Requested By: Eden Anderson MD Reason for Consult: Lower extremity edema and venous stasis ulceration History of Present Illness: Patient is an 82-year-old woman with chronic lower extremity edema complicated by peripheral vascular disease admitted with increasing edema erythema leukocytosis with concern for soft tissue skin infection. She was found to have pulmonary hypertension and sleep study was recommended however no per performed. She was found to have peripheral vascular disease complicating her venous insufficiency and edema. Allergies/Medications Allergies: Coded Allergies: NO KNOWN ALLERGIES (03/18/16) Home Med List: Alprazolam 0.25 MG TABLET 1 TAB PO AT BEDTIME PRN SLEEP (Reported) Apixaban (Eliquis) 5 MG TABLET 1 TAB PO BID BLOOD THINNER (Reported) Aspirin (Ecotrin*) 81 MG TABLET.DR 1 TAB PO DAILY HEART (Reported) Diltiazem HCl (Diltiazem 24HR Cd) 180 MG CAP.ER.24H 1 CAP PO DAILY HEART ( Reported) Furosemide 40 MG TABLET 1.5 TAB PO DAILY CHF Lisinopril 10 MG TABLET 10 MG PO DAILY HEART HEALTH Metoprolol Tartrate 25 MG TABLET 25 MG PO BID HEART HEALTH Simvastatin (Simvastatin*) 10 MG TABLET 1 TAB PO QPM CHOLESTEROL (Reported) Review of Systems Review of Systems: Noncontributory Past History Travel History Traveled to [place] past 21 day No Medical History Blood Transfusion Hx: No Neurological: NONE EENT: NONE Cardiovascular: AFIB, CHF, "SOME KIND OF HEART PROB" PERIPHERAL EDEMA HYPERTENSION Respiratory: NONE Gastrointestinal: NONE Hepatic: NONE Renal: NONE Musculoskeletal: CHRONIC BACK PAIN Psychiatric: NONE Endocrine: NONE Blood Disorders: DVT, HISTORY DVT IN BLE 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 Home Who Do You Live With? spouse Services at Home: None Primary Language: Gabonese Smoking Status: Never Smoked ETOH Use: denies use Illicit Drug Use: denies illicit drug use Living Will? unknown Functional Ability ADLs Independent: dressing, eating, toileting, bathing. Ambulation: independent IADLs Independent: shopping, housework, finances, food prep, telephone, transportation , medication admin. ECHO Results (as available) EF% 65 Exam & Diagnostic Data Vital Signs and I&O Vital Signs Result Date Time Pulse Ox 99 01/04 641 B/P 100/58 01/04 641 O2 Delivery Nasal Cannula 01/04 641 O2 Flow Rate 2.0L 01/04 641 Temp 97.6 01/04 641 Pulse 74 01/04 641 Resp 20 01/04 641 Intake & Output 01/04 0000 01/03 1600 01/03 0800 Intake Total 118 400 Output Total 550 900 Balance -432 -500 Intake, IV 40 Intake, Oral 118 360 Output, Urine 550 900 Patient 220 lb 220 lb Weight Weight Bed scale Bed scale Measurement Method There is 3-4+ symmetrical bilateral pitting edema distal pulses are unable to palpated secondary to edema over the right leg is a minute unstageable ulcer measuring approximately 0.5 x 0.3 cm. Over the upper left leg is an area of crusting eschar which was easily able to be removed revealing a minute pinpoint area of ulceration. Assessment/Plan Impression/Plan: 82-year-old woman with chronic edema resistant to leg elevation complicated by peripheral vascular disease admitted with soft tissue skin infection. She has minimal areas of skin breakdown secondary to edema. Recommend attempts at leg elevation negative fluid balance. Wounds can be covered with Xeroform and gauze. Vascular surgery evaluation. Patient should have outpatient sleep study arranged Consult Acknowledgment - Thank you for your consult request.
--- NOTE | 2018-01-04 09:34 | PN- Cardiology ---
Subjective Subjective: Feeling better. Shortness of breath is improving. She still has significant lower extremity edema. She continues to have orthopnea. No chest pain. No palpitations. No diaphoresis. No nausea or vomiting. Objective Vital Signs and I&Os Vital Signs Date Time Temp Pulse Resp B/P B/P Pulse O2 O2 Flow FiO2 Mean Ox Delivery Rate 01/04 0641 97.6 74 20 100/58 99 Nasal 2.0L Cannula 01/04 0000 Nasal 2.0L Cannula 01/03 2231 98.4 93 16 118/64 97 Nasal 2.0L Cannula 01/03 2226 95 120/64 01/03 1600 Nasal 2.0L Cannula 01/03 1545 98.6 85 16 122/60 98 Nasal 2.0L Cannula 01/03 1300 Nasal 2.0L Cannula 01/03 1258 93 Nasal 2.0L Cannula 01/03 1154 98.6 100 24 140/60 98 Nasal 2.0L Cannula Intake & Output 01/04 1600 01/04 0800 01/04 0000 01/03 1600 01/03 0800 01/03 0000 Intake Total 320 118 400 Output Total 400 550 900 Balance -80 -432 -500 Intake, IV 20 40 Intake, Oral 300 118 360 Output, Urine 400 550 900 Patient 211 lb 220 lb 220 lb 200 lb Weight Weight Chair scale Bed scale Bed scale Reported by Patient Measurement Method Physical Exam: Gen: NAD HEENT: normal Lungs: Rales in the bases bilateral, normal resp. effort Heart: RRR, S1, S2, no murmurs Abdomen: Soft, nontender, no masses Extremities: 2+ edema with chronic skin changes Neuro: Alert and oriented x 3, cranial nerves intact Current Medications: Current Medications Sig/Rin Start time Last Medication Dose Route Stop Time Status Admin Albuterol Sulfate 3 ML Q4P PRN 01/03 1400 AC 01/03 INH 1300 Alprazolam 0.25 MG AT BEDTIME PRN 01/02 2315 AC PO 01/09 2314 Apixaban 5 MG BID 01/02 2309 AC 01/04 PO 0847 Aspirin Buffered 81 MG DAILY 01/03 1000 AC 01/04 PO 0847 Atorvastatin Calcium 10 MG 1700 01/03 1700 AC 01/03 PO 1731 Cefazolin Sodium 1,000 MG Q8H 01/03 1100 AC 01/04 IV 0308 Diltiazem HCl 180 MG DAILY 01/03 1000 AC 01/04 PO 0847 Furosemide 60 MG DAILY 01/03 1000 AC 01/04 IV 0849 Influenza Virus 0.5 ML ONCE ONE 01/03 1230 DC 01/04 Vaccine IM 01/03 1231 0006 Ipratropium [place]chas 2.5 ML ONCE ONE 01/03 1400 DC 01/03 INH 01/03 1401 1300 Lisinopril 10 MG DAILY 01/03 1000 AC 01/04 PO 0848 Metoprolol Tartrate 25 MG BID 01/02 2310 AC 01/04 PO 0848 Results Last 48 Hrs of Labs/Mics: Laboratory Tests 01/04/18 0645: Anion Gap 10, Estimated GFR > 60, BUN/Creatinine Ratio 22.9, CBC w Diff NO MAN DIFF REQ, RBC 4.03 L, MCV 79.1 L, MCH 25.6 L, MCHC 32.4 L, RDW 16.3 H, MPV 8.0, Gran % 76.6 H, Lymphocytes % 12.6 L, Monocytes % 9.4 H, Eosinophils % 1.1, Basophils % 0.3, Absolute Granulocytes 6.4, Absolute Lymphocytes 1.0 L, Absolute Monocytes 0.8 H, Absolute Eosinophils 0.1, Absolute Basophils 0 01/03/18 0615: Lactic Acid 1.5, CBC w Diff MAN DIFF ORDERED, RBC 3.99 L, MCV 78.6 L, MCH 25.5 L, MCHC 32.4 L, RDW 16.3 H, MPV 7.2 L, Gran % 90.5 H, Lymphocytes % 4.2 L, Monocytes % 5.2, Eosinophils % 0, Basophils % 0.1, Absolute Granulocytes 13.6 H , Segmented Neutrophils 77 H, Band Neutrophils 10 H, Absolute Lymphocytes 0.6 L, Lymphocytes 6 L, Monocytes 7, Absolute Monocytes 0.8 H, Absolute Eosinophils 0, Absolute Basophils 0, Platelet Estimate ADEQUATE, Polychromasia 1 +, Hypochromic-Microcytic 2+, Poikilocytosis 1+, Anisocytosis 1+, Elliptocytes FEW 01/03/18 0600: Hemoglobin A1c 7.2 H 01/03/18 0525: Troponin I 0.04 01/03/18 0525: Anion Gap 13, Estimated GFR > 60, BUN/Creatinine Ratio 27.1 H 01/03/18 0127: Troponin I 0.05 01/02/18 2325: Urine Color Cancelled, Urine Clarity Cancelled, Urine pH Cancelled, Ur Specific Hurley Cancelled, Urine Protein Cancelled, Urine Ketones Cancelled, Urine Nitrite Cancelled, Urine Bilirubin Cancelled, Urine Urobilinogen Cancelled, Ur Leukocyte Esterase Cancelled, Ur Microscopic Cancelled, Urine Hemoglobin Cancelled, Urine Glucose Cancelled 01/02/18 1817: Anion Gap 10, Estimated GFR > 60, BUN/Creatinine Ratio 25.7 H, Glucose 206 H, Calcium 8.7, Magnesium 1.8, Total Bilirubin 1.1, AST 39 H, ALT 32, Alkaline Phosphatase 108, Troponin I 0.03, Cpa-X-Fqkagiolcvp Pept 4240 H, Total Protein 7.6, Albumin 3.6, Globulin 4.0, Albumin/Globulin Ratio 0.9 L, Cholesterol 127, D-Dimer High Sensitivty 436 H, CBC w Diff MAN DIFF ORDERED, RBC 4.23, MCV 78.6 L, MCH 25.2 L, MCHC 32.1 L, RDW 16.7 H, MPV 7.6, Gran % 94.1 H, Lymphocytes % 2.4 L, Monocytes % 3.5, Eosinophils % 0, Basophils % 0, Absolute Granulocytes 18.8 H, Segmented Neutrophils 85 H, Band Neutrophils 11 H, Absolute Lymphocytes 0.5 L, Lymphocytes 3 L, Monocytes 1 L, Absolute Monocytes 0.7 H, Absolute Eosinophils 0, Absolute Basophils 0, Platelet Estimate ADEQUATE, Normochromic RBCs VERIFIED, Poikilocytosis 1+, Anisocytosis 1+, Stomatocytes FEW Microbiology 01/03 0000 NASOPHARYN: Influenza Virus A & B Rapid Smear - COMP Recent Imaging Studies: Lower extremity Doppler study: Normal triplex scan without evidence of deep venous thrombosis involving the lower extremities. Assessment/Plan Assessment/Plan Assessment: 1. Severe pulmonary hypertension 2. Acute on chronic HFpEF 3. Severe pulmonary hypertension Plan: * Increase Lasix to 60 mg IV every 12 hours * Monitor input and output with daily weights * Check basic metabolic profile in the morning * Continue other cardiac medications Continue telemetry? Yes
[2018-01-04 14:10] VITALS: BP 110/50
[2018-01-04 23:02] VITALS: BP 104/56
[2018-01-05 07:01] VITALS: BP 120/64
--- NOTE | 2018-01-05 07:13 | PN- Housestaff ---
John Alcaraz MD 01/05/18 0712: Subjective Follow-up For: Acute on chronic CHF Left lower extremity cellulitis Sepsis Tele-Events Since Last Visit: Atrial Flutter 70-80s Subjective: Patient seen and examined. She is seen sitting upright in her chair resting comfortably. She appears to be in no acute distress. She reports feeling well and denies any complaints. She denies any chest pain, or shortness of breath. Review of Systems Constitutional: Reports: see HPI. Objective Last 24 Hrs of Vital Signs/I&O Vital Signs Date Time Temp Pulse Resp B/P B/P Pulse O2 O2 Flow FiO2 Mean Ox Delivery Rate 01/05 1428 98.1 80 18 120/50 94 01/05 0909 79 120/64 01/05 0909 79 120/64 01/05 0701 98.1 79 18 120/64 97 Room Air 01/05 0000 94 Room Air 01/04 2302 97.8 86 18 104/56 99 Nasal Cannula 01/04 2049 88 144/60 01/04 1915 99 Nasal 2.0L Cannula 01/04 1600 93 Nasal 2.0L Cannula Intake & Output 01/05 1600 01/05 0800 01/05 0000 Intake Total 240 120 Output Total 450 1200 Balance -210 -1080 Intake, Oral 240 120 Output, Urine 450 1200 Patient 93.61 kg Weight Weight Chair scale Measurement Method Physical Exam General Appearance: Alert, Oriented X3, Cooperative, No Acute Distress Other Physical Findings: GEN: morbidly obese elderly [facility] woman in no acute distress HEENT: NCAT, PERRL, EOMI, anicteric sclera, MMM NECK: Supple, JVD difficult to assess, trachea midline, no accessory respiratory muscle use CARD: irregularly irregular PULM: CTA bilaterally ABD: Soft, obese, NT, ND, BS+ NEURO: Awake and alert, CN II-XII grossly intact EXT: 4+ bilateral lower extremity pitting edema, bilateral distal legs wrapped in sterile gauze without obvious drainage, pulses intact Current Medications: Current Medications Sig/Rin Start time Last Medication Dose Route Stop Time Status Admin Albuterol Sulfate 3 ML Q4P PRN 01/03 1400 AC 01/03 INH 1300 Alprazolam 0.25 MG AT BEDTIME PRN 01/02 2315 AC PO 01/09 231 Apixaban 5 MG BID 01/02 2309 AC 01/05 PO 0909 Aspirin Buffered 81 MG DAILY 01/03 1000 AC 01/05 PO 0908 Atorvastatin Calcium 10 MG 1700 01/03 1700 AC 01/04 PO 1702 Cefazolin Sodium 1,000 MG Q8H 01/03 1100 AC 01/05 IV 1144 Diltiazem HCl 180 MG DAILY 01/03 1000 AC 01/05 PO 0909 Furosemide 60 MG 7:30 AM, & 4:30 PM 01/05 0730 AC 01/05 IV 0639 Furosemide 60 MG Q12 01/04 2200 DC 01/04 IV 2047 Lisinopril 10 MG DAILY 01/03 1000 AC 01/05 PO 0909 Metoprolol Tartrate 25 MG BID 01/02 2310 AC 01/05 PO 0909 Patient Medication 1 ED ONE ONE 01/05 1430 [place] Teaching ED 01/05 1431 Last 24 Hrs of Lab/Juan Manuel Results Last 24 Hrs of Labs/Mics: Laboratory Tests 01/05/18 0650: Anion Gap 9, Estimated GFR > 60, BUN/Creatinine Ratio 30.0 H Assessment/Plan Assessment: 82 year old woman with multiple medical problems significant for congestive heart failure and chronic lower extremity swelling seen for evaluation of shortness of breath and rest over past two days. 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 She was found to have evidence of sepsis with lower extremity infection. She was admitted to the telemetry for managment of left lower extremity cellulitis with sepsis and acute on chronic congestive heart failure. Patient remains in negative fluid balance on 60 mg of IV lasix twice daily. She continues to deny any symptoms. Leukocytosis has improved with blood cultures remaining no growth to date. She has clinically improving left lower extremity cellulitis. Problem List -Acute on Chronic CHF -Left lower extremity wound, on Cefazolin -Sepsis, improved -Newly diagnosed diabetes mellitus, probably type II -Atrial Fibrillation, on Eliquis -Anxiety -Hypertension -Chronic low back pain -Chronic bilateral lower extremity swelling -History of GI bleed Plan -Telemetry -Strict I&Os, daily weights -Elevate legs -Wound care to left leg -Cefazolin 1g IV Q8H -Lasix increased to 60 mg twice daily -Continue home meds: Lisinopril, Metoprolol, Cardizem, Aspirin, Eliquis, Alprazolam -Cardiology consult for Acute CHF -Follow up blood cultures & sensitivites -Pain control with acetaminophen -CHF Diet -DVT PPx with Eliquis -FULL CODE Problem List: 1. CHF (congestive heart failure) 2. 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 Plan of care discussed with the medical team and the patient. Available lab work and radiology test reports were reviewed. Patient appears much better and she reports that she is a having less difficulty breathing on ambulation to bathroom. She denies any chest pain fever chills nausea vomiting or abdominal pain. She is currently afebrile with stable vital signs. Her saturation on 2 L oxygen 97%. Chest exam shows scattered crepitations. Creatinine 0.7. Assessment plan * Acute diastolic CHF exacerbation * Left lower extremity wound and cellulitis * Diabetes * History of atrial fibrillation on eliquis Plan Continue Lasix to 60 twice a day IV Elevate legs when resting Monitor input output and daily weights Continue low-salt diet Follow wound care recommendations Patient suggested to have sleep study which can be done as outpatient.
--- NOTE | 2018-01-05 07:56 | PN- Wound Care ---
Subjective Subjective: Patient is comfortable there is no drainage from her persistently dependent edematous legs Objective Vital Signs and I&Os Vital Signs Result Date Time Pulse Ox 97 01/05 701 B/P 120/64 01/05 701 O2 Delivery Room Air 01/05 701 Temp 98.1 01/05 701 Pulse 79 01/05 701 Resp 18 01/05 701 O2 Flow Rate 2.0L 01/04 1915 Intake & Output 01/05 0000 01/04 1600 01/04 0800 Intake Total 120 620 320 Output Total 1200 520 400 Balance -1080 100 -80 Intake, IV 20 Intake, Oral 120 620 300 Output, Urine 1200 520 400 Patient 211 lb Weight Weight Chair scale Measurement Method Physical Exam: There is marked bilateral chronic brawny edema. Patient refuses to elevate her legs effectively. There are no open wounds present. There is no drainage. Impression/Plan Impression/Plan Impression/Plan: 82-year-old woman with chronic lower extremity edema and venous stasis ulcers is slowly diuresing. There are no open wounds present elevate legs to the extent she will allow continue negative fluid balance
--- NOTE | 2018-01-05 11:12 | ECHOCARDIOGRAM REPORT ---
CATERINA SCHROEDER Age: 82 : 1935 Gender: F Exam Date: 01/04/2018 19:50 Exam Location: 1 [address] Ht (in): 60 Wt (lb): 220 BSA: 2.12 BP: 129 / 59 Ordering Physician: Summer Sykes MD Referring Physician: Kiko Ho MD Technologist: aCrol Keller [facility] Room Number: 177 Indications: SHORTNESS OF BREATH Rhythm: Sinus Technical Quality: Fair FINDINGS Left Ventricle Normal size left ventricle. No obvious regional wall motion abnormalities. Normal left ventricular ejection fraction estimated at 55-60%. Right Ventricle Normal right ventricular size and function. Right Atrium Normal right atrial size. Left Atrium Moderate left atrial dilatation. Mitral Valve Mild mitral annular calcification. Mitral valve thickened. Mild mitral regurgitation. Aortic Valve Trileaflet aortic valve. Diffuse thickening (sclerosis) of the aortic valve cusps without reduced excursion. No aortic stenosis. No aortic regurgitation. Tricuspid Valve Tricuspid valve not well visualized, grossly normal.[id number] tricuspid regurgitation. Right ventricular systolic pressure estimated to be elevated at 48 mmHg. Pulmonic Valve Structurally normal pulmonic valve. Moderate pulmonic regurgitation. Pericardium Small pericardial effusion. Great Vessels Aortic root and proximal ascending aorta not well visualized, grossly normal. CONCLUSIONS 1. This was a technically difficult examination. 2. Mild aortic sclerosis is present with no valvular stenosis or insufficiency. 3. Mitral leaflet thickening is present with mild anular calcification and mild mitral insufficiency with modeate left atrial enlargement. 4. A small pericardial effusion is present which is hemodynamically insignificant \ 5. The left ventricular chamber size and systolic function appear normla 6. Mild to moderate tricuspid and pulmonic insufficiency are present with pulmonary hypertension and an estimated RV systolic pressure of 48 mmHg. 7. Since the prior study of 09/29/17, there has been no signficant change. Kiko Ho M.D. (Electronically Signed) Final Date: 05 January 2018 11:11 MEASUREMENTS (Male / Female) Normal Values 2D ECHO LV Diastolic Diameter PLAX 3.8 cm 4.2 - 5.9 / 3.9 - 5.3 cm LV Systolic Diameter PLAX 2.1 cm 2.1 - 4.0 cm LV Fractional Shortening PLAX 44.7 % 25 - 46 % LV Ejection Fraction 2D Teich 76.7 % IVS Diastolic Thickness 1.1 cm LVPW Diastolic Thickness 1.3 cm LV Relative Wall Thickness 0.6 RV Internal Dim ED PLAX 2.6 cm 1.9 - 3.8 cm LVOT Diameter 1.9 cm Aortic Root Diameter 2.4 cm LA Volume 68.0 cm 18 - 58 / 22 - 52 cm Ascending Aorta Diameter 2.9 cm DOPPLER AV Peak Velocity 135.0 cm/s AV Peak Gradient 7.3 mmHg AV Mean Velocity 89.4 cm/s AV Mean Gradient 4.0 mmHg AV Velocity Time Integral 26.6 cm LVOT Peak Velocity 98.7 cm/s LVOT Peak Gradient 3.9 mmHg LVOT Mean Velocity 67.3 cm/s LVOT Mean Gradient 2.0 mmHg LVOT Velocity Time Integral 23.1 cm LVOT Stroke Volume 65.5 cm AV Area Cont Eq vti 2.5 cm AV Area Cont Eq pk 2.1 cm MV Peak Velocity 140.0 cm/s MV Peak Gradient 7.8 mmHg MV Mean Velocity 68.6 cm/s MV Mean Gradient 2.0 mmHg Mitral E Point Velocity 133.0 cm/s MV PHT Velocity 144.0 cm/s MV Deceleration [place] 669.0 cm/s MV Pressure Half Time 64.6 ms MV Area PHT 3.4 cm MV Deceleration Time 198.0 ms TR Peak Velocity 322.0 cm/s TR Peak Gradient 41.5 mmHg Right Atrial Pressure 5.0 mmHg Pulmonary Artery Systolic Pressu 46.5 mmHg Right Ventricular Systolic Press 46.5 mmHg PV Peak Velocity 93.7 cm/s PV Peak Gradient 3.5 mmHg PV Mean Velocity 61.4 cm/s PV Mean Gradient 2.0 mmHg PV Velocity Time Integral 19.3 cm LV E' Lateral Velocity 13.1 cm/s Mitral E to LV E' Lateral Ratio 10.2 LV E' Septal Velocity 7.5 cm/s Mitral E to LV E' Septal Ratio 17.7
[2018-01-05 14:28] VITALS: BP 120/50
--- NOTE | 2018-01-05 16:00 | PN- Cardiology ---
Subjective Subjective: The patient appears to be doing somewhat better with diuresis. LE edema improving but still present, greater on the left side. Objective Vital Signs and I&Os Vital Signs Date Time Temp Pulse Resp B/P B/P Pulse O2 O2 Flow FiO2 Mean Ox Delivery Rate 01/05 1428 98.1 80 18 120/50 94 01/05 0909 79 120/64 01/05 0909 79 120/64 01/05 0701 98.1 79 18 120/64 97 Room Air 01/05 0000 94 Room Air 01/04 2302 97.8 86 18 104/56 99 Nasal Cannula 01/04 2049 88 144/60 01/04 1915 99 Nasal 2.0L Cannula Intake & Output 01/05 1600 01/05 0800 01/05 0000 01/04 1600 01/04 0800 01/04 0000 Intake Total 500 240 120 620 320 118 Output Total 095 868 4205 520 400 550 Balance -400 -210 -1080 100 -80 -432 Intake, IV 20 Intake, Oral 500 240 120 620 300 118 Output, Urine 835 772 8175 520 400 550 Patient 206 lb 211 lb Weight Weight Chair scale Chair scale Measurement Method Physical Exam: GENERAL: morbidly obese elderly female; NAD; A and O x 3 HEENT: NCAT, PERRL, EOMI, anicteric sclera, MMM NECK: Supple, JVD difficult to assess, carotids normal bilaterally CARD: irregularly irregular, 1-2/6 systolic murmur PULM: CTA bilaterally ABD: Soft, obese, NT, ND, BS+ NEURO: Non focal EXT: 3+ bilateral lower extremity pitting edema, greater on the left side with stasis changes and areas of excoriation Current Medications: Current Medications Sig/Rin Start time Last Medication Dose Route Stop Time Status Admin Albuterol Sulfate 3 ML Q4P PRN 01/03 1400 AC 01/03 INH 1300 Alprazolam 0.25 MG AT BEDTIME PRN 01/02 2315 AC PO 01/09 2314 Apixaban 5 MG BID 01/02 2309 AC 01/05 PO 0909 Aspirin Buffered 81 MG DAILY 01/03 1000 AC 01/05 PO 0908 Atorvastatin Calcium 10 MG 1700 01/03 1700 AC 01/04 PO 1702 Cefazolin Sodium 1,000 MG Q8H 01/03 1100 AC 01/05 IV 1144 Diltiazem HCl 180 MG DAILY 01/03 1000 AC 01/05 PO 0909 Furosemide 60 MG 7:30 AM, & 4:30 PM 01/05 0730 AC 01/05 IV 0639 Furosemide 60 MG Q12 01/04 2200 MD 01/04 IV 7 Lisinopril 10 MG DAILY 01/03 1000 AC 01/05 PO 0909 Metoprolol Tartrate 25 MG BID 01/02 2310 01/05 PO 0909 Patient Medication 1 ED ONE ONE 01/05 1430 MD Teaching ED 01/05 1431 Results Last 48 Hrs of Labs/Mics: Laboratory Tests 01/05/18 0650: Anion Gap 9, Estimated GFR > 60, BUN/Creatinine Ratio 30.0 H 01/04/18 0645: Anion Gap 10, Estimated GFR > 60, BUN/Creatinine Ratio 22.9, CBC w Diff NO MAN DIFF REQ, RBC 4.03 L, MCV 79.1 L, MCH 25.6 L, MCHC 32.4 L, RDW 16.3 H, MPV 8.0, Gran % 76.6 H, Lymphocytes % 12.6 L, Monocytes % 9.4 H, Eosinophils % 1.1, Basophils % 0.3, Absolute Granulocytes 6.4, Absolute Lymphocytes 1.0 L, Absolute Monocytes 0.8 H, Absolute Eosinophils 0.1, Absolute Basophils 0 Assessment/Plan Assessment/Plan Assessment: 1. Acute on chronic HFpEF - clinically improving with diiuresis. 2. LE edema likely related to venous insufficiency, PHTN, etc 3. Pulmonary HTN 4. Obesity 5. Mild to moderate MR 6. Microcytic anemia Plan: * Continue Lasix to 60 mg IV every 12 hours; continue leg elevation , etc. * Continue to monitor input and output with daily weights * Check basic metabolic profile in the morning * Continue other cardiac medications Continue telemetry? Yes
[2018-01-06 06:54] VITALS: BP 126/60
[2018-01-06 08:29] LABS: ABSOLUTE BASOPHIL COUNT 0 /CUMM (0.0-0.2); ABSOLUTE EOSINOPHIL COUNT 0.2 /CUMM (0.0-0.7); ABSOLUTE GRANULOCYTE CT 2.6 /CUMM (1.4-6.5); ABSOLUTE LYMPH COUNT 1.5 /CUMM (1.2-3.4); ABSOLUTE MONOCYTE COUNT 0.7 /CUMM (0.10-0.60); BASOPHIL % 0.4 % (0.0-2.0); EOSINOPHIL % 4.4 % (0-5); GRANULOCYTE % 51.3 % (42.2-75.2); HEMATOCRIT 29.3 % (37-47); MEAN CORPUSCULAR HGB 25.5 PG (27.0-31.0); MEAN CORPUSCULAR HGB CONC 32.5 G/DL (33.0-37.0); MEAN CORPUSCULAR VOLUME 78.6 FL (81.0-99.0); MEAN PLATELET VOLUME 7.9 FL (7.4-10.4); PLATELET COUNT 250 /CUMM (130-400); RBC DISTRIBUTION WIDTH 16.3 % (11.5-14.5); RED BLOOD CELL CT 3.72 /CUMM (4.20-5.40); WHITE BLOOD CELL COUNT 5.1 /CUMM (4.8-10.8)
--- NOTE | 2018-01-06 08:33 | PN- Housestaff ---
Krish STOCKTON,[facility] 01/06/18 0833: Subjective Follow-up For: Acute on chronic CHF Left lower extremity cellulitis Sepsis Tele-Events Since Last Visit: Atrial fibrillation Heart rate 67-87 Overnight events noted Subjective: Patient states she feels she is back to her baseline, her legs swelling and erythema has improved and the shortness of breath has resolved as well. Review of Systems Constitutional: Reports: no symptoms, see HPI, chills, diaphoresis, fever, malaise, weakness, unexplained weight loss. EENTM: Reports: no symptoms. Cardiovascular: Reports: no symptoms. Respiratory: Reports: no symptoms. Gastrointestinal: Reports: no symptoms. Genitourinary: Reports: no symptoms. Musculoskeletal: Reports: no symptoms. Skin: Reports: no symptoms. Neurological/Psychological: Reports: no symptoms. Hematologic/Endocrine: Reports: no symptoms. Immunologic/Allergic: Reports: no symptoms. Objective Last 24 Hrs of Vital Signs/I&O Vital Signs Date Time Temp Pulse Resp B/P B/P Pulse O2 O2 Flow FiO2 Mean Ox Delivery Rate 01/06 1322 95 Room Air 01/06 0931 98.5 78 16 126/60 01/06 0930 98.5 78 16 126/60 01/06 0654 98.5 70 18 126/60 97 Room Air 01/05 2317 Room Air 01/05 2105 98.5 77 18 94 Room Air 01/05 2030 80 118/60 01/05 1428 98.1 80 18 120/50 94 Intake & Output 01/06 1600 01/06 0800 01/06 0000 Intake Total 120 240 Output Total 350 500 Balance -230 -260 Intake, Oral 120 240 Number 0 0 Bowel Movements Output, Urine 350 500 Patient 206 lb 210 lb Weight Weight Chair scale Measurement Method Physical Exam General Appearance: Alert, Oriented X3, Cooperative, No Acute Distress Skin: No Rashes, No Breakdown Cardiovascular: Normal S1, Normal S2, irregular Lungs: crackles on the right side Abdomen: Normal Bowel Sounds, Soft, No Tenderness Extremities: No Clubbing, No Cyanosis, +2 bilateral lower extremity edema Current Medications: Current Medications Sig/Rin Start time Last Medication Dose Route Stop Time Status Admin Albuterol Sulfate 3 ML Q4P PRN 01/03 1400 AC 01/03 INH 1300 Alprazolam 0.25 MG AT BEDTIME PRN 01/02 2315 AC PO 01/09 2314 Apixaban 5 MG BID 01/02 2309 AC 01/06 PO 0930 Aspirin Buffered 81 MG DAILY 01/03 1000 AC 01/06 PO 0930 Atorvastatin Calcium 10 MG 1700 01/03 1700 AC 01/05 PO 1821 Cefazolin Sodium 1,000 MG Q8H 01/03 1100 AC 01/06 IV 1147 Diltiazem HCl 180 MG DAILY 01/03 1000 AC 01/06 PO 0930 Furosemide 60 MG 7:30 AM, & 4:30 PM 01/05 0730 AC 01/06 IV 0822 Lisinopril 10 MG DAILY 01/03 1000 AC 01/06 PO 0931 Metoprolol Tartrate 25 MG BID 01/02 2310 AC 01/06 PO 0930 Patient Medication 1 ED ONE ONE 01/05 1430 [place] Teaching ED 01/05 1431 Polyethylene Glycol 17 GM DAILY 01/05 2009 AC 01/06 PO 0931 Last 24 Hrs of Lab/Juan Manuel Results Last 24 Hrs of Labs/Mics: Laboratory Tests 01/06/18 0620: Anion Gap 10, Estimated GFR > 60, BUN/Creatinine Ratio 30.0 H, CBC w Diff NO MAN DIFF REQ, RBC 3.72 L, MCV 78.6 L, MCH 25.5 L, MCHC 32.5 L, RDW 16.3 H, MPV 7.9, Gran % 51.3, Lymphocytes % 30.0, Monocytes % 13.9 H, Eosinophils % 4.4 , Basophils % 0.4, Absolute Granulocytes 2.6, Absolute Lymphocytes 1.5, Absolute Monocytes 0.7 H, Absolute Eosinophils 0.2, Absolute Basophils 0 Assessment/Plan Assessment: 82 year old woman with multiple medical problems significant for congestive heart failure and chronic lower extremity swelling seen for evaluation of shortness of breath and rest over past two days. 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 She was found to have evidence of sepsis with lower extremity infection. She was admitted to the telemetry for managment of left lower extremity cellulitis with sepsis and acute on chronic congestive heart failure. Problem List -Acute on Chronic CHF -Left lower extremity wound, on Cefazolin -Sepsis, improved -Newly diagnosed diabetes mellitus, probably type II -Atrial Fibrillation, on Eliquis Plan - Continue Lasix 60 mg twice daily - Strict I&Os, daily weights, negative fluid balance of 230 overnight. - Potassium 3.4 today, repleted. - Cardiology consult; appreciate recommendations - Continue Cefazolin 1g IV Q8H (Day 4) - Follow up blood cultures & sensitivites - remains negative - Continue home meds: Lisinopril, Metoprolol, Cardizem, Aspirin, Eliquis, Alprazolam - Repeat BEP in a.m. DVT PPx with Eliquis Patient is FULL CODE Problem List: 1. Lower extremity edema 2. A-fib 3. CHF (congestive heart failure) Pain Ratin Pain Location: None Pain Goal: Remain pain free Pain Plan: None Tomorrow's Labs & Rationales: BEP(on Lasix) Adam STOCKTON,Amir 01/06/18 1248: Attending MD Review Statement Attending Statement Attending MD Statement: examined this patient, discuss w/resident/PA/DIRECTOR OF RADIOLOGY, agreed w/resident/PA/DIRECTOR OF RADIOLOGY, reviewed EMR data (avail), discussed with nursing Attending Assessment/Plan: Pt was seen, chart reviewed. Appreciate cards eval. VSS. Replete K, check Mg. Rest of the plan as per resident's note
--- NOTE | 2018-01-06 12:48 | PN- Cardiology ---
Subjective Subjective: The patient continues to slowly improve. Her metabolic parameters remained stable. Her lower extremity edema is persistent but improving. Objective Vital Signs and I&Os Vital Signs Date Time Temp Pulse Resp B/P B/P Pulse O2 O2 Flow FiO2 Mean Ox Delivery Rate 01/06 0931 98.5 78 16 126/60 01/06 0930 98.5 78 16 126/60 01/06 0654 98.5 70 18 126/60 97 Room Air 01/05 2317 Room Air 01/05 2105 98.5 77 18 94 Room Air 01/05 2030 80 118/60 01/05 1428 98.1 80 18 120/50 94 Intake & Output 01/06 1600 01/06 0800 01/06 0000 01/05 1600 01/05 0800 01/05 0000 Intake Total 120 240 500 240 120 Output Total 350 500 746 304 8437 Balance -230 -260 -400 -210 -1080 Intake, Oral 120 240 500 240 120 Number 0 0 Bowel Movements Output, Urine 350 500 928 [id number] Patient 206 lb 210 lb 206 lb Weight Weight Chair scale Chair scale Measurement Method Physical Exam: GENERAL: morbidly obese elderly female; NAD; A and O x 3 HEENT: NCAT, PERRL, EOMI, anicteric sclera, MMM NECK: Supple, JVD difficult to assess, carotids normal bilaterally CARD: irregularly irregular, 1-2/6 systolic murmur PULM: CTA bilaterally ABD: Soft, obese, NT, ND, BS+ NEURO: Non focal EXT: 2+ bilateral lower extremity pitting edema, greater on the left side with stasis changes and areas of excoriation Current Medications: Current Medications Sig/Rin Start time Last Medication Dose Route Stop Time Status Admin Albuterol Sulfate 3 ML Q4P PRN 01/03 1400 AC 01/03 INH 1300 Alprazolam 0.25 MG AT BEDTIME PRN 01/02 2315 AC PO 01/09 2314 Apixaban 5 MG BID 01/02 230 AC 01/06 PO 0930 Aspirin Buffered 81 MG DAILY 01/03 1000 AC 01/06 PO 0930 Atorvastatin Calcium 10 MG 1700 01/03 1700 AC 01/05 PO 1821 Cefazolin Sodium 1,000 MG Q8H 01/03 1100 AC 01/06 IV 1147 Diltiazem HCl 180 MG DAILY 01/03 1000 AC 01/06 PO 0930 Furosemide 60 MG 7:30 AM, & 4:30 PM 01/05 0730 AC 01/06 IV 0822 Lisinopril 10 MG DAILY 01/03 1000 AC 01/06 PO 0931 Metoprolol Tartrate 25 MG BID 01/02 2310 AC 01/06 PO 0930 Patient Medication 1 ED ONE ONE 01/05 1430 [facility] ED 01/05 1431 Polyethylene Glycol 17 GM DAILY 01/05 2009 AC 01/06 PO 0931 Results Last 48 Hrs of Labs/Mics: Laboratory Tests 01/06/18 0620: Anion Gap 10, Estimated GFR > 60, BUN/Creatinine Ratio 30.0 H, CBC w Diff NO MAN DIFF REQ, RBC 3.72 L, MCV 78.6 L, MCH 25.5 L, MCHC 32.5 L, RDW 16.3 H, MPV 7.9, Gran % 51.3, Lymphocytes % 30.0, Monocytes % 13.9 H, Eosinophils % 4.4 , Basophils % 0.4, Absolute Granulocytes 2.6, Absolute Lymphocytes 1.5, Absolute Monocytes 0.7 H, Absolute Eosinophils 0.2, Absolute Basophils 0 01/05/18 0650: Anion Gap 9, Estimated GFR > 60, BUN/Creatinine Ratio 30.0 H Assessment/Plan Assessment/Plan Assessment: 1. Acute on chronic HFpEF - clinically improving with diiuresis. 2. LE edema likely related to venous insufficiency, PHTN, etc 3. Pulmonary HTN 4. Obesity 5. Mild to moderate MR 6. Microcytic anemia Plan: * Continue IV Lasix for another 24 hours; continue leg elevation , etc. * Continue to monitor input and output with daily weights * Check basic metabolic profile in the morning * Continue other cardiac medications Continue telemetry? Yes
[2018-01-06 14:20] VITALS: BP 122/50
--- NOTE | 2018-01-06 18:15 | Discharge Summary ---
Visit Information Visit Dates Admission Date: 01/02/18 Discharge Date: 01/08/18 Hospital Course Course Attending Physician: Merlene Coleman MD Primary Care Physician: Unknown Hospital Course: 82-year-old woman with past medical history of congestive heart failure, atrial fibrillation, hypertension, anxiety, chronic back pain, chronic lower extremity swelling and gastrointestinal bleed seen for evaluation of shortness of breath. Patient reported that up until 2 days prior to admission she was in her normal state of health when she developed suddenly shortness of breath both at rest and with exertion. Patient was followed by breaker operator Dr. Davin Ho but was lost to follow-up as of September 2017. Patient reports self discontinuing Lasix for the past "few months" stating that she was "crazy" to do so. She denied any chest pain, palpitations, orthopnea at time of admission. ED course -Vitals: Temp 98.2-98.4, HR 100-103, RR 24-26, BP 143-164/69-76, O2 94-95% on 2.0 L via nasal cannula -CBC: WBC/bands 20.0/11, Hgb/HCT 10.7/33.2, platelet 262 -BMP: Sodium 133, potassium 4.2, chloride 97, CO2 26, urea 18, creatinine 0.7, anion gap 10, glucose 206 -LFT: AST 39, ALT 32, ALP 108 -Miscellaneous: Troponin I 0.03, BNP 4240, magnesium 1.8, lactic acid 1.5 -EKG: Atrial fibrillation with poor R-wave progression -CXR: Central vascular congestion with mild interstitial edema Problem list on admission -Acute on chronic diastolic failure -Acute hypoxic respiratory failure -History of atrial fibrillation, on eliquis -Chronic venous stasis -Hypertension -Left lower extremity cellulitis -Sepsis Hospital course Patient was admitted to the telemetry floor. Strict in's and outs and daily weights were recorded and patient was continued on intravenous Lasix. Serial EKG/troponin and telemetry remained unremarkable. Cardiology consult was placed with patient's breaker operator Dr. Ho whom recommended increasing the intravenous Lasix. Slowly patient had clinical improvement of her acute on chronic diastolic heart failure. Blood cultures were drawn and patient was started on intravenous cefazolin for her left lower extremity cellulitis/sepsis. Patient remained afebrile with improved leukocytosis. Clinically she had improving left lower extremity cellulitis. She was converted to oral Keflex to complete a 10 day total antibiotic course. Wound care consult was placed and local wound care applied. Patient was discharged to home with an increased dose of Lasix and the remainder offer antibiotics with instruction to follow-up with her breaker operator Kiko Ho MD after discharge. She was referred to the CHF clinic. She was given a prescription to obtain a repeat serum chemistry this Monday/ with results afforded to her breaker operator. Allergies: Coded Allergies: NO KNOWN ALLERGIES (03/18/16) Disposition Summary Disposition Principal Diagnosis: Acute on chronic CHF exacerbation Additional Diagnosis: Left lower extremity cellulitis Sepsis Discharge Disposition: home or self care Discharge Instructions General Discharge Information Code Status: Full Code Patient's Diet: Congestive heart failure diet Patient's Activity: Per physical therapy assessment Follow-Up Instructions/Appts: Follow up with your breaker operator Dr. Ho is 2-3 weeks. Follow up with your scheduled CHF clinic appointment. Take Keflex as directed. Continue all your previous medications. Wear compression stockings during the day when at rest. Medications at Discharge Discharge Medications: Stop taking the following medications: Furosemide (Furosemide) 40 MG TABLET ORAL DAILY Qty = 30 Continue taking these medications: Alprazolam (Alprazolam) 0.25 MG TABLET 1 Tablet ORAL AT BEDTIME as needed for SLEEP Qty = 30 Comments: NOT GIVEN IN HOSPITAL Simvastatin (Simvastatin*) 10 MG TABLET 1 Tablet ORAL Every night Qty = 90 Comments: Last Taken: 01/07/18 Time: 5PM PT GIVEN ATORVASTATIN Aspirin (Ecotrin*) 81 MG TABLET.DR 1 Tablet ORAL DAILY Comments: Last Taken: 01/08/18 Time: 9AM Metoprolol Tartrate (Metoprolol Tartrate) 25 MG TABLET 25 Milligram ORAL TWICE DAILY Days = 28 Comments: Last Taken: 01/08/18 Time: 9AM Lisinopril (Lisinopril) 10 MG TABLET 10 Milligram ORAL DAILY Days = 28 Comments: Last Taken: 01/08/18 Time: 9AM Diltiazem HCl (Diltiazem 24HR Cd) 180 MG CAP.ER.24H 1 Capsule ORAL DAILY Comments: Last Taken: 01/08/18 Time: 9AM Apixaban (Eliquis) 5 MG TABLET 1 Tablet ORAL TWICE DAILY Qty = 60 Comments: Last Taken: 2/26/18 Time: 9AM Start taking the following new medications: Cephalexin (Keflex) 500 MG CAPSULE 1 Tablet ORAL Q6H Qty = 14 No Refills Instructions: TAKE DIRECTED Comments: Last Taken:01/08/18 Time:9AM Furosemide (Furosemide) 40 MG TABLET 1.5 Tablet ORAL TWICE DAILY Qty = 90 No Refills Comments: Last Taken:01/08/18 Time:9AM Copies To: Vandana Ho MD
[2018-01-06 21:50] VITALS: BP 138/52
[2018-01-07 06:51] VITALS: BP 122/62
--- NOTE | 2018-01-07 09:21 | PN- Housestaff ---
Amarilys STOCKTON,Laurence 01/07/18 0921: Subjective Follow-up For: Acute on chronic CHF Left lower extremity cellulitis Sepsis Tele-Events Since Last Visit: Atrial flutter with heart rate 44-64, 2 second pause Subjective: Patient was seen and examined today. Patient states that she is feeling well. Patient reports no shortness of breath at rest or on exertion. Patient continues to have lower extremity swelling. Patient states that she is unable to keep her legs elevated due to chronic back pain. Patient reports decreased appetite. Patient denies any chest pain, palpitations, dizziness, lightheadedness, nausea/vomiting, abdominal pain, constipation/diarrhea, dysuria /hematuria. No acute events overnight. Review of Systems Constitutional: Reports: no symptoms. Cardiovascular: Reports: see HPI. Respiratory: Reports: no symptoms. Gastrointestinal: Reports: no symptoms. Genitourinary: Reports: no symptoms. Musculoskeletal: Reports: see HPI. Objective Last 24 Hrs of Vital Signs/I&O Vital Signs Date Time Temp Pulse Resp B/P B/P Pulse O2 O2 Flow FiO2 Mean Ox Delivery Rate 01/07 1429 97.1 82 20 110/48 96 Room Air 01/07 1031 97.4 62 18 122/62 01/07 1030 97.4 62 18 122/62 01/07 0651 97.4 62 18 122/62 97 Room Air 01/06 2242 69 138/60 01/06 2150 98.9 72 18 138/52 94 Room Air Intake & Output 01/07 1600 01/07 0800 01/07 0000 Intake Total 950 560 Output Total 525 Balance 950 35 Intake, Oral 950 560 Output, Urine 525 Patient 215 lb Weight Weight Bed scale Measurement Method Physical Exam General Appearance: Alert, Cooperative, No Acute Distress Skin Temp/Moisture Exam: Warm/Dry HEENT: Atraumatic, Mucous Membr. moist/pink Cardiovascular: Normal S1, Normal S2, irregular rate Lungs: Clear to Auscultation, Normal Air Movement Abdomen: Normal Bowel Sounds, Soft, No Tenderness Neurological: Normal Speech Extremities: bilateral lower extremity edema 2+ pitting, venous stasis changes Current Medications: Current Medications Sig/Rin Start time Last Medication Dose Route Stop Time Status Admin Acetaminophen 650 MG ONCE ONE 01/06 2300 DC 01/06 PO 01/06 2301 2258 Alprazolam 0.25 MG AT BEDTIME PRN 02/20 2315 AC PO 02/27 2314 Apixaban 5 MG BID 01/02 2309 AC 01/07 PO 1031 Aspirin Buffered 81 MG DAILY 01/03 1000 AC 01/07 PO 1031 Atorvastatin Calcium 10 MG 1700 01/03 1700 AC 01/07 PO 1755 Bisacodyl 5 MG DAILY 01/07 1400 AC 01/07 PO 1422 Cefazolin Sodium 1,000 MG Q8H 01/03 1100 AC 01/07 IV 1843 Diltiazem HCl 180 MG DAILY 01/03 1000 AC 01/07 PO 1031 Furosemide 60 MG 7:30 AM, & 4:30 PM 01/05 0730 AC 01/07 IV 1623 Lisinopril 10 MG DAILY 01/03 1000 AC 01/07 PO 1030 Metoprolol Tartrate 25 MG BID 01/02 2310 AC 01/07 PO 1031 Polyethylene Glycol 17 GM DAILY 01/05 2009 AC 01/07 PO 1030 Senna 187 MG AT BEDTIME 01/06 1415 AC 01/06 PO 1724 Last 24 Hrs of Lab/Juan Manuel Results Last 24 Hrs of Labs/Mics: Laboratory Tests 01/07/18 0625: Anion Gap 10, Estimated GFR > 60, BUN/Creatinine Ratio 23.8 Assessment/Plan Assessment: 82 year old woman with multiple medical problems significant for congestive heart failure and chronic lower extremity swelling seen for evaluation of shortness of breath and rest over past two days. Patient reports not taking her diuretic for several months and denies having a spud grader. She was found to have evidence of sepsis with lower extremity infection. She was admitted to the telemetry for managment of left lower extremity cellulitis with sepsis and acute on chronic congestive heart failure. Problem List -Acute on Chronic CHF -Left lower extremity wound, on Cefazolin -Sepsis, improved -Newly diagnosed diabetes mellitus, probably type II -Atrial Fibrillation, on Eliquis Plan - Continue Lasix 60 mg twice daily per cardiology recommendations for one more day. Switch to PO lasix tomorrow - Strict I&Os, daily weights, negative fluid balance of 230 overnight. - Potassium 3.6 today, repleted today. - Cardiology consult; appreciate recommendations - Continue Cefazolin 1g IV Q8H (Day 5) - Follow up blood cultures & sensitivites - remains negative - Continue home meds: Lisinopril, Metoprolol, Cardizem, Aspirin, Eliquis, Alprazolam - Repeat BEP in AM DVT PPx with Deion Patient is FULL CODE Dispo: Patient is to follow up with Dr. Ho in 2-3 weeks upon discharge. Problem List: 1. Lower extremity edema 2. CHF (congestive heart failure) 3. A-fib Pain Ratin Pain Location: back pain Pain Goal: Pain 4 or less Pain Plan: tylenol PRN Tomorrow's Labs & Rationales: bep - on lona Medina MD,Amir 01/07/18 1145: Attending MD Review Statement Attending Statement Attending MD Statement: examined this patient, discuss w/resident/PA/WILDLIFE PHOTOGRAPHER, agreed w/resident/PA/WILDLIFE PHOTOGRAPHER, reviewed EMR data (avail), discussed with nursing Attending Assessment/Plan: Pt was seen and evalauted. Very pleasant elderly lady in NAD. speaking in full sentences. Appreciate Cards input. Raphael repleted
--- NOTE | 2018-01-07 14:14 | PN- Cardiology ---
Subjective Subjective: The patient is sitting in her bedside chair. She is somewhat fatigued. She is feeling better than admission. No new complaints. Objective Vital Signs and I&Os Vital Signs Date Time Temp Pulse Resp B/P B/P Pulse O2 O2 Flow FiO2 Mean Ox Delivery Rate 01/07 1031 97.4 62 18 122/62 01/07 1030 97.4 62 18 122/62 01/07 0651 97.4 62 18 122/62 97 Room Air 01/06 2242 69 138/60 01/06 2150 98.9 72 18 138/52 94 Room Air 01/06 1420 98.1 69 18 122/50 95 Room Air Intake & Output 01/07 1600 01/07 0800 01/07 0000 01/06 1600 01/06 0800 01/06 0000 Intake Total 950 560 720 120 240 Output Total 525 950 350 500 Balance 950 35 -230 -230 -260 Intake, Oral 950 560 720 120 240 Number 0 0 Bowel Movements Output, Urine 525 950 350 500 Patient 215 lb 206 lb 210 lb Weight Weight Bed scale Chair scale Measurement Method Physical Exam: GENERAL: morbidly obese elderly female; NAD; A and O x 3 HEENT: NCAT, PERRL, EOMI, anicteric sclera, MMM NECK: Supple, JVD difficult to assess, carotids normal bilaterally CARD: irregularly irregular, 1-2/6 systolic murmur PULM: CTA bilaterally ABD: Soft, obese, NT, ND, BS+ NEURO: Non focal EXT: 2+ bilateral lower extremity pitting edema, greater on the left side with stasis changes and areas of excoriation Current Medications: Current Medications Sig/Rin Start time Last Medication Dose Route Stop Time Status Admin Acetaminophen 650 MG ONCE ONE 01/06 2300 DC 01/06 PO 01/06 2301 225 Albuterol Sulfate 3 ML Q4P PRN 01/03 1400 DC 01/03 INH 1300 Alprazolam 0.25 MG AT BEDTIME PRN 01/02 2315 AC PO 01/09 231 Apixaban 5 MG BID 01/02 2309 AC 01/07 PO 1031 Aspirin Buffered 81 MG DAILY 01/03 1000 AC 01/07 PO 1031 Atorvastatin Calcium 10 MG 1700 01/03 1700 AC 01/06 PO 1725 Bisacodyl 5 MG DAILY 01/07 1400 AC PO Cefazolin Sodium 1,000 MG Q8H 01/03 1100 AC 01/07 IV 1031 Diltiazem HCl 180 MG DAILY 01/03 1000 AC 01/07 PO 1031 Furosemide 60 MG 7:30 AM, & 4:30 PM 01/05 0730 AC 01/07 IV 0828 Lisinopril 10 MG DAILY 01/03 1000 AC 01/07 PO 1030 Metoprolol Tartrate 25 MG BID 01/02 2310 AC 01/07 PO 1031 Polyethylene Glycol 17 GM DAILY 01/05 2009 AC 01/07 PO 1030 Senna 187 MG AT BEDTIME 01/06 1415 AC 01/06 PO 1724 Results Last 48 Hrs of Labs/Mics: Laboratory Tests 01/07/18624: Anion Gap 10, Estimated GFR > 60, BUN/Creatinine Ratio 23.8 01/06/18619: Anion Gap 10, Estimated GFR > 60, BUN/Creatinine Ratio 30.0 H, Magnesium 2.0, CBC w Diff NO MAN DIFF REQ, RBC 3.72 L, MCV 78.6 L, MCH 25.5 L, MCHC 32.5 L, RDW 16.3 H, MPV 7.9, Gran % 51.3, Lymphocytes % 30.0, Monocytes % 13.9 H, Eosinophils % 4.4, Basophils % 0.4, Absolute Granulocytes 2.6, Absolute Lymphocytes 1.5, Absolute Monocytes 0.7 H, Absolute Eosinophils 0.2, Absolute Basophils 0 Assessment/Plan Assessment/Plan Assessment: 1. Acute on chronic HFpEF - clinically improving with diiuresis. 2. LE edema likely related to venous insufficiency, PHTN, etc 3. Pulmonary HTN 4. Obesity 5. Mild to moderate MR 6. Microcytic anemia Plan: * Continue IV Lasix for another 24 hours; continue leg elevation , etc. transition to oral Lasix tomorrow. Please note that the patient's bicarbonate has risen to 36 today. Recheck labs in the morning. If tolerated, see if the patient can be fitted for support stockings prior to discharge. * Continue to monitor input and output with daily weights * Check basic metabolic profile in the morning * Continue other cardiac medications * Follow-up with me 2-3 weeks postdischarge. Consider enrolling the patient in the [place] [facility] clinic. Continue telemetry? Yes
[2018-01-07 14:29] VITALS: BP 110/48
[2018-01-07 21:53] VITALS: BP 112/62
[2018-01-08 06:45] VITALS: BP 116/50
--- NOTE | 2018-01-08 07:13 | PN- Housestaff ---
Kieran STOCKTON,John 01/08/1813: Subjective Follow-up For: Acute on chronic CHF Left lower extremity cellulitis Sepsis Tele-Events Since Last Visit: Atrial Flutter HR 60s Subjective: Patient seen and examined. She is seen sitting in her chair slumped forward sleeping. She appears to be in no acute distress. She reports feeling well today and denies any complaints. Specifically she denies any fever, chills, chest pain , or shortness of breath. Review of Systems Constitutional: Reports: see HPI. Objective Last 24 Hrs of Vital Signs/I&O Vital Signs Date Time Temp Pulse Resp B/P B/P Pulse O2 O2 Flow FiO2 Mean Ox Delivery Rate 01/08 0836 62 116/50 01/08 0828 62 116/50 01/08 0645 98.2 62 20 116/50 98 Room Air 01/07 2153 98.2 70 20 112/62 96 Room Air 01/07 2148 64 116/62 01/07 1429 97.1 82 20 110/48 96 Room Air 01/07 1031 97.4 62 18 12262 01/07 1030 97.4 62 18 122/62 Intake & Output 01/08 1600 01/08 0800 01/08 0000 Intake Total 400 780 Output Total 350 925 Balance 50 -145 Intake, Oral 400 780 Output, Urine 350 925 Patient 96.672 kg Weight Weight Chair scale Measurement Method Physical Exam General Appearance: Alert, Oriented X3, Cooperative, No Acute Distress Other Physical Findings: GEN: morbidly obese elderly [facility] woman in no acute distress HEENT: NCAT, PERRL, EOMI, anicteric sclera, MMM NECK: Supple, JVD difficult to assess, trachea midline, no accessory respiratory muscle use CARD: irregularly irregular PULM: CTA bilaterally ABD: Soft, obese, NT, ND, BS+ NEURO: Awake and alert, CN II-XII grossly intact EXT: 4+ bilateral lower extremity pitting edema, bilateral distal legs wrapped in sterile gauze without obvious drainage, pulses intact Current Medications: Current Medications Sig/Rin Start time Last Medication Dose Route Stop Time Status Admin Alprazolam 0.25 MG AT BEDTIME PRN 01/02 2315 AC PO 01/09 231 Apixaban 5 MG BID 01/02 2309 AC 01/08 PO 08 Aspirin Buffered 81 MG DAILY 01/03 1000 AC 01/08 PO 0828 Atorvastatin Calcium 10 MG 1700 01/03 1700 AC 01/07 PO 1755 Bisacodyl 5 MG DAILY 01/07 1400 AC 01/08 PO 0828 Cefazolin Sodium 1,000 MG Q8H 01/03 1100 AC 01/08 IV 0355 Diltiazem HCl 180 MG DAILY 01/03 1000 AC 01/08 PO 0828 Furosemide 60 MG DAILY 01/08 1000 AC 01/08 PO 0833 Furosemide 60 MG 7:30 AM, & 4:30 PM 01/05 0730 DC 01/07 IV 1623 Lisinopril 10 MG DAILY 01/03 1000 AC 01/08 PO 0828 Metoprolol Tartrate 25 MG BID 01/02 2310 AC 01/08 PO 0836 Polyethylene Glycol 17 GM DAILY 01/05 2009 AC 01/08 PO 0839 Potassium Chloride 40 MEQ ONCE ONE 01/07 1915 DC 01/07 PO 01/07 191 2148 Senna 187 MG AT BEDTIME 01/06 1415 AC 01/07 PO 2148 Last 24 Hrs of Lab/Juan Manuel Results Last 24 Hrs of Labs/Mics: Laboratory Tests 01/08/18 0647: Anion Gap 10, Estimated GFR > 60, BUN/Creatinine Ratio 32.9 H Assessment/Plan Assessment: 82 year old woman with multiple medical problems significant for congestive heart failure and chronic lower extremity swelling seen for evaluation of shortness of breath and rest over past two days. Patient reports not taking her diuretic for several months and denies having a services executive. She was found to have evidence of sepsis with lower extremity infection. She was admitted to the telemetry for managment of left lower extremity cellulitis with sepsis and acute on chronic congestive heart failure. Patient has adequately diuresed and is now on oral lasix. She remains afebrile without leukocytosis on day six of intravenous cefazolin for her left lower extremity cellulitis. Cultures remain no growth to day. She has clinically improving cellulitis and is being discharged to home on oral keflex to complete a 10 day total antibiotic course. She is to follow up with the CHF clinic and her services executive with 2-3 weeks. Her dose of lasix is increased to 60 mg twice daily. She is encouraged to wear compression stockings during the day when at rest. Problem List -Acute on Chronic CHF, resolved -Left lower extremity wound, on Cefazolin, improving -Sepsis, improved -Newly diagnosed diabetes mellitus, probably type II -Atrial Fibrillation, on Eliquis -Anxiety -Hypertension -Chronic low back pain -Chronic bilateral lower extremity swelling -History of GI bleed Plan -Discharge to home -Strict I&Os, daily weights -Elevate legs -Wound care to left leg -Cefazolin transition to oral keflex on DC for 10 day total antibiotic course -Lasix increased to 60 mg twice daily by mouth -Continue home meds: Lisinopril, Metoprolol, Cardizem, Aspirin, Eliquis, Alprazolam -Cardiology consult for Acute CHF -Follow up blood cultures & sensitivites -Pain control with acetaminophen -CHF Diet -DVT PPx with Eliquis -FULL CODE -Outpatient cardiology and CHF follow up Problem List: 1. CHF (congestive heart failure) Pain Ratin Pain Location: None Pain Goal: Remain pain free Pain Plan: See assessment Tomorrow's Labs & Rationales: None [place] STOCKTON,Merlene 01/08/18 1059: Attending MD Review Statement Attending Statement Attending MD Statement: examined this patient, discuss w/resident/PA/RETAIL LEADER, agreed w/resident/PA/RETAIL LEADER, reviewed EMR data (avail), discussed with nursing, discussed with case mgmt, amended to note Attending Assessment/Plan: Patient seen and examined. Resting comfortably and not in any acute distress. No issues overnight. No events on telemetry monitoring. She reports feeling much better. On examination she has no jugular venous distention. Lungs are clear to auscultation bilaterally. She has chronic bilateral lower extremity edema. Patient reports that she has been compliant with her Lasix 60 mg daily at home. She admits on occasion she forgets to take the medications but states that she is generally compliant. In view of this we will be discharging her on the higher dose of Lasix. We will increase her dose of 60 mg twice a day. She is to follow-up with her outpatient providers this week for repeat serum chemistry to monitor renal function and bicarbonate level. Her bicarb level has improved today. Creatinine remains within normal limits although she does have mild prerenal azotemia. Case was discussed with Dr. Garcia with. She is medically stable to be discharged home today.
--- NOTE | 2018-01-08 07:19 | Patient Discharge Instructions ---
Discharge Instructions General Discharge Information Special Instructions: Follow up with your twisting frame fixer Dr. Ho is 2-3 weeks. Follow up with your scheduled CHF clinic appointment. Take Keflex as directed. Continue all your previous medications. Wear compression stockings during the day when at rest. Acute Coronary Syndrome Inclusion Criteria At DC or during hospital stay patient has or had the following: ACS DIAGNOSIS No Discharge Core Measures Meds if any: Prescribed or Continued at Discharge Meds if any: NOT Prescribed or Continued at Discharge Congestive Heart Failure Inclusion Criteria At DC or during hospital stay patient has or had the following: CHF DIAGNOSIS No Discharge Core Measures Meds if any: Prescribed or Continued at Discharge Meds if any: NOT Prescribed or Continued at Discharge Cerebrovascular accident Inclusion Criteria At DC or during hospital stay patient has or had the following: CVA/TIA Diagnosis No Discharge Core Measures Meds if any: Prescribed or Continued at Discharge Meds if any: NOT Prescribed or Continued at Discharge Venous thromboembolism Inclusion Criteria VTE Diagnosis No VTE Type NONE VTE Confirmed by (Test) NONE Discharge Core Measures - Per Current guidelines, there needs to be overlap - treatment for the first 5 days of Warfarin therapy. - If discharged on Warfarin prior to 5 days of - overlap therapy, the patient will need to be - assessed for post discharge needs including - *Post discharge parental anticoagulation - *Warfarin and/or parental anticoagulation education - *Follow up date to check INR post discharge At least 5 days overlap therapy as Inpatient No Meds if any: Prescribed or Continued at Discharge Note: Overlap Therapy is Warfarin and Anticoagulant Meds if any: NOT Prescribed or Continued at Discharge
[2018-01-08] MEDS ORDERED: KEFLEX500 M1 PO ×2 (08:12→10:15)
[2018-01-08 08:36] VITALS: BP 116/50
--- NOTE | 2018-01-08 09:59 | PN- Cardiology ---
Subjective Subjective: Feeling better. Shortness of breath is improving. No chest pain. No palpitations. No diaphoresis. No nausea or vomiting. Objective Vital Signs and I&Os Vital Signs Date Time Temp Pulse Resp B/P B/P Pulse O2 O2 Flow FiO2 Mean Ox Delivery Rate 01/08 0836 62 116/50 01/08 0828 62 116/50 01/08 0645 98.2 62 20 116/50 98 Room Air 01/07 2153 98.2 70 20 112/62 96 Room Air 01/07 2148 64 116/62 01/07 1429 97.1 82 20 110/48 96 Room Air 01/07 1031 97.4 62 18 122/62 01/07 1030 97.4 62 18 122/62 Intake & Output 01/08 1600 01/08 0801/08 0000 01/07 1600 01/07 0800 01/07 0000 Intake Total 400 780 480 950 560 Output Total 350 925 450 525 Balance 50 -145 30 950 35 Intake, Oral 400 780 480 950 560 Output, Urine 350 925 450 525 Patient 213 lb 215 lb Weight Weight Chair scale Bed scale Measurement Method Physical Exam: Gen: NAD HEENT: normal Lungs: Rales in the bases bilateral, normal resp. effort Heart: RRR, S1, S2, no murmurs Abdomen: Soft, nontender, no masses Extremities: 2+ edema with chronic skin changes Neuro: Alert and oriented x 3, cranial nerves intact Current Medications: Current Medications Sig/Rin Start time Last Medication Dose Route Stop Time Status Admin Alprazolam 0.25 MG AT BEDTIME PRN 01/02 2315 AC PO 01/09 231 Apixaban 5 MG BID 01/02 2309 AC 01/08 PO 0828 Aspirin Buffered 81 MG DAILY 01/03 1000 AC 01/08 PO 0828 Atorvastatin Calcium 10 MG 1700 01/03 1700 AC 01/07 PO 1755 Bisacodyl 5 MG DAILY 01/07 1400 AC 01/08 PO 0828 Cefazolin Sodium 1,000 MG Q8H 01/03 1100 AC 01/08 IV 0355 Diltiazem HCl 180 MG DAILY 01/03 1000 AC 01/08 PO 0828 Furosemide 60 MG DAILY 01/08 1000 AC 01/08 PO 0833 Furosemide 60 MG 7:30 AM, & 4:30 PM 01/05 0730 DC 01/07 IV 1623 Lisinopril 10 MG DAILY 01/03 1000 AC 01/08 PO 0828 Metoprolol Tartrate 25 MG BID 01/02 2310 AC 01/08 PO 0836 Polyethylene Glycol 17 GM DAILY 01/05 2009 AC 01/08 PO 0839 Potassium Chloride 40 MEQ ONCE ONE 01/07 1915 DC 01/07 PO 01/07 1916 214 Senna 187 MG AT BEDTIME 01/06 1415 AC 01/07 PO 2148 Results Last 48 Hrs of Labs/Mics: Laboratory Tests 01/08/18 0647: Anion Gap 10, Estimated GFR > 60, BUN/Creatinine Ratio 32.9 H 01/07/18 0625: Anion Gap 10, Estimated GFR > 60, BUN/Creatinine Ratio 23.8 Assessment/Plan Assessment/Plan Assessment: 1. Acute on chronic HFpEF - clinically improving with diiuresis. 2. LE edema likely related to venous insufficiency, PHTN, etc 3. Pulmonary HTN 4. Obesity 5. Mild to moderate MR 6. Microcytic anemia Plan: * Increase oral Lasix to 60 mg p.o. twice daily since the patient was on 60 mg daily as an outpatient * Continue other cardiac medications. * Follow up with Dr. Ho in 1 week after discharge * Follow up with [facility] Continue telemetry? No
[2018-01-08] MEDS ORDERED: FUROSEMIDE40 M1 PO (10:15)
== END 2018-01-08 13:00 | DRG 871 ==
LOC: ERH 17:35 → ERHI 20:18 → 1NO 20:18 → CANRESERV 21:11 → ENRESERV 21:11 → ENTRNSPT 21:34 → EDTRNSPTSTS 21:42 → EDTRNSPT 21:42 → CMPTRNSPT 21:50 → ERHI 01-03 06:37 → ENRESERV 01-03 10:55 → CANRESERV 01-03 10:55 → ENRESERV 01-03 13:57 → ENTRNSPT 01-03 14:40 → EDTRNSPTSTS 01-03 15:21 → 1NO 01-03 15:23 → CMPTRNSPT 01-03 15:41 → 1NO 01-05 09:00 → ENPENDDIS 01-08 10:17 → 1NO 01-08 11:39 → ENTRNSPT 01-08 12:44 → EDTRNSPT 01-08 12:50 → EDTRNSPTSTS 01-08 12:50 → 1NO 01-08 13:00 → CMPTRNSPT 01-08 13:10
PROVIDERS: Emergency Medicine; Internal Medicine Infectious Disease; Internal Medicine Interventional Cardiology
DX: A41.9 Sepsis, unspecified organism (principal); J96.01 Acute respiratory failure with hypoxia; I50.33 Acute on chronic diastolic (congestive) heart failure; I48.0 Paroxysmal atrial fibrillation; E66.01 Morbid (severe) obesity due to excess calories; I27.20 Pulmonary hypertension, unspecified; L03.116 Cellulitis of left lower limb; Z68.41 Body mass index [BMI] 40.0-44.9, adult; L97.829 Non-pressure chronic ulcer of other part of left lower leg with unspecified severity; L97.819 Non-pressure chronic ulcer of other part of right lower leg with unspecified severity; I11.0 Hypertensive heart disease with heart failure; Z79.01 Long term (current) use of anticoagulants; Z91.14 Patient's other noncompliance with medication regimen; I73.9 Peripheral vascular disease, unspecified; F41.9 Anxiety disorder, unspecified; M54.9 Dorsalgia, unspecified; I83.893 Varicose veins of bilateral lower extremities with other complications; Z79.82 Long term (current) use of aspirin; Z86.718 Personal history of other venous thrombosis and embolism; I87.8 Other specified disorders of veins; D72.829 Elevated white blood cell count, unspecified; D50.9 Iron deficiency anemia, unspecified; I34.0 Nonrheumatic mitral (valve) insufficiency
CPT/HCPCS: 1NP; ERO; 36415; 71045; 82436; 87040; 87804; 87804-59; 93005; 93010; 93306; 93970; 96374; 99291; J0690; J1940; Q2036